=== PATIENT | male | born 1960 | race Caucasian/White ===

== ENCOUNTER 2020-03-26 11:25 | Outpatient (REF) | payer MEDICARE, MEDICAID, SELFPAY ==
[2020-03-26 14:33] LABS: Estimated Average Glucose 126 mg/dL
[2020-03-26 15:03] LABS: Alanine Aminotransferase 26 U/L (0-40); Alkaline Phosphatase 88 U/L (39-117); Anion Gap 13 (12-20); Aspartate Amino Transferase 23 U/L (5-37); Bilirubin Direct 0.2 mg/dL (0.0-0.5); Bilirubin Total 0.5 mg/dL (0.0-1.0); Blood Urea Nitrogen 14 mg/dL (9-16); Carbon Dioxide 27 mmol/L (22-29); Chloride 102 mmol/L (96-108); Estimated Glomerular Filt Rate 56; Potassium 4.3 mmol/l (3.3-5.1); Sodium 138 mmol/L (135-145); Total Protein 7.8 g/dL (6.5-8.0)
[2020-03-26 15:15] LABS: TSH reflex Free T4 1.67 mIU/mL (0.32-4.0)
[2020-03-26 15:39] LABS: Creatinine Urine 317.08 mg/dL
[2020-03-26 15:47] LABS: Glucose Random 55 mg/dL (60-115)
[2020-03-26 15:53] LABS: Microalbum/Creatinine Ratio Ur 193.3 ug/mg cr
[2020-03-27 07:57] LABS: LDL Cholesterol Direct 126 mg/dL (<100)
== END 2020-03-26 11:26 | disposition home or self-care (01) ==
LOC: HO.HMGCLDS 11:25
PROVIDERS: PCP Internal Medicine; Visit Provider Internal Medicine
DX: E13.9 Other specified diabetes mellitus without complications (principal); E78.9 Disorder of lipoprotein metabolism, unspecified; S06.9X9A Unspecified intracranial injury with loss of consciousness of unspecified duration, initial encounter; F32.9 Major depressive disorder, single episode, unspecified; F41.1 Generalized anxiety disorder; I10 Essential (primary) hypertension
CPT/HCPCS: 36415; 80048; 80076; 82043; 83036; 83721; 84443

== ENCOUNTER → 2022-08-07 15:26 | Outpatient (REF) | payer MEDICARE, MEDICAID, SELFPAY | LOC: HO.SL 15:26 | PROVIDERS: Visit Provider Registered Nurse | DX: Z13.89 Encounter for screening for other disorder (principal) ==

== ENCOUNTER 2022-09-23 12:53 | Outpatient (REF) | payer MEDICARE, MEDICAID, SELFPAY ==
[2022-09-23 16:40] LABS: Anion Gap 15 (12-20); Blood Urea Nitrogen 20 mg/dL (9-16); Calcium 10.1 mg/dL (8.4-10.2); Carbon Dioxide 22 mmol/L (22-29); Chloride 106 mmol/L (96-108); Cholesterol 121 mg/dL; Estimated Glomerular Filt Rate 48; Glucose Random 79 mg/dL (60-115); HDL Cholesterol 38 mg/dL; LDL Cholesterol Calculated 72 mg/dl; Potassium 3.7 mmol/L (3.3-5.1); Sodium 139 mmol/L (135-145); Triglycerides 56 mg/dL
== END 2022-09-23 12:54 | disposition home or self-care (01) ==
LOC: HO.HHCL 12:53
PROVIDERS: Visit Provider Registered Nurse
DX: I10 Essential (primary) hypertension (principal)
CPT/HCPCS: 36415; 80048; 80061

== ENCOUNTER 2024-02-03 13:16 | Outpatient (REF) | payer OTHER, SELFPAY ==
[2024-02-03 16:59] LABS: Alanine Aminotransferase 40 U/L (0-40); Albumin Level 3.9 g/dL (3.5-5.0); Alkaline Phosphatase 78 U/L (39-117); Anion Gap 12 (12-20); Aspartate Amino Transferase 29 U/L (5-37); Bilirubin Total 0.5 mg/dL (0.0-1.0); Blood Urea Nitrogen 14 mg/dL (9-16); Calcium 9.6 mg/dL (8.4-10.2); Carbon Dioxide 27 mmol/L (22-29); Chloride 109 mmol/L (96-108); Cholesterol 144 mg/dL (<200); Estimated Glomerular Filt Rate 52; Glucose Random 98 mg/dL (60-115); HDL Cholesterol 36 mg/dL (>40); LDL Cholesterol Calculated 82 mg/dL (<100); Potassium 3.5 mmol/L (3.3-5.1); Sodium 144 mmol/L (135-145); Total Protein 7.3 g/dL (6.5-8.0); Triglycerides 133 mg/dL (<150)
[2024-02-03 17:21] LABS: Creatinine Urine 734.87 mg/dL; Microalbum/Creatinine Ratio Ur 48.3 ug/mg cr (<30)
== END 2024-02-03 13:17 | disposition home or self-care (01) ==
LOC: HO.HHCL 13:16
PROVIDERS: Visit Provider Registered Nurse
DX: E11.22 Type 2 diabetes mellitus with diabetic chronic kidney disease (principal); N18.31 Chronic kidney disease, stage 3a
CPT/HCPCS: 36415; 80053; 80061; 82043; 82570

== ENCOUNTER → 2024-03-28 10:59 | Outpatient (REF) | payer OTHER, SELFPAY | LOC: HO.SL 10:59 | PROVIDERS: PCP Registered Nurse; Visit Provider Registered Nurse | DX: G47.33 Obstructive sleep apnea (adult) (pediatric) (principal); I12.9 Hypertensive chronic kidney disease with stage 1 through stage 4 chronic kidney disease, or unspecified chronic kidney disease; E11.22 Type 2 diabetes mellitus with diabetic chronic kidney disease; N18.31 Chronic kidney disease, stage 3a; E78.00 Pure hypercholesterolemia, unspecified; R42 Dizziness and giddiness; F03.B0 Unspecified dementia, moderate, without behavioral disturbance, psychotic disturbance, mood disturbance, and anxiety | CPT/HCPCS: 95806 ==

== ENCOUNTER 2024-05-06 11:10 | Outpatient (REF) | payer OTHER, SELFPAY ==
--- NOTE | ~2024-05-06 | XR_ITS ---
EXAMINATION: XR CHEST CLINICAL INFORMATION: Unintentional weight loss COMPARISON: None available. TECHNIQUE: 2 views of the chest were obtained. FINDINGS: No consolidation, pleural effusion or pneumothorax. No hyperinflation. Cardiomediastinal silhouette demonstrates a round apex and a prominent aortic arch. Multilevel thoracic and upper lumbar spondylosis. XR/XR chest 2V IMPRESSION: No acute airspace disease. Consider hypertensive cardiomyopathy in the correct clinical settings. Electronically signed by: Bharat Lopez MD 05/06/2024 11:56 AM ALENA
--- OUTSIDE RECORDS SUMMARY | 2024-05-06 12:18 | XMS_ITS | Encounter Summary ---
Author Organization [employer] Address [address] [facility] [address] [place] [address] Care Team Providers Care Outsole Cementer Machine Name Role Phone [place] [facility] Primary Care Provider [phone] Reason for Visit * Reason Onset Date Comments chart prep 05/05/2024 Encounter Details Date Type Department Care Team ([facility] Contact Info) Description 05/05/2024 Telephone [facility] MED[facility]INE [address] [place], [place] [phone] [place] [facility] [address] [place], [place] [phone] chart prep Social History Tobacco Use Types Packs/Day Years Used Date Smoking Tobacco: Never Passive Smoke Exposure: Never Smokeless Tobacco: Never Alcohol Use Standard Drinks/Week Comments Never 0 (1 standard drink = 0.6 oz pur e alcohol) Depression Answer Date Recorded Patient Health Questionnaire-9 Score 0 08/12/2022 Housing Stability Answer Date Recorded What is your housing situation today? I have bela calvillo 05/06/[address] you li ve. Do you have problems with any of the following? None of the above 05/06/2024 Food Insecurity Answer Date Recorded Within the past 12 months, y ou worried that your food would run out before you got money to buy more: Never True 05/06/2024 Within the past 12 months,th e food you bought just didn't last and you didn't have enough money to get more: Never True Transportation Answer Date Recorded In the past 12 months, has l ack of transportation kept you from medical appts, meetings, work or from getting things needed for daily living? No 05/06/2024 Utilities Answer Date Recorded In the past 12 months, has t he electric, gas, oil or water company threatened to shut off services in your home? No 05/06/2024 Depression Answer Date Recorded Patient Health Questionnaire-2 Score 0 05/06/2024 Internet Access Answer Date Recorded Internet Access Q1 Yes 05/06/2024 Internet Access Q2 Not on file 05/06/2024 Sex and Gender Information Value Date Recorded Sex Assigned at Male 04/17/2022 11:20 AM EST Legal Sex Male 11:14 AM EST Gender Identity Male 04/17/2022 11:20 AM EST Sexual Orientation Straight 04/17/2022 11 :20 AM EST documented as of this encounter Miscellaneous Notes * Telephone Encounter - Chantel Brito MA - 05/05/2024 1:28 PM EST Chart Prep Labs: done Images: not done ( No show to MRI ) Vaccines due: yes Referrals: complete Screenings: colonoscopy Overdue care gaps: A1C, Glucose, Sbirt, SDOH, PHQ-9, Oral Health documented in this encounter Plan of Treatment Not on file documented as of this encounter Goals Goal Patient Goal Type Associated Problems Recent Progress Patient-Stated? Author Check and record your blood pressure once per day Blood Pressure No Jose Elias Ramos PharmEvelin Take your medication every day Lifestyle No Jose Elias Ramos PharmD documented as of this encounter Visit Diagnoses Not on filedocumented in this encounter Additional Health Concerns Assessment Noted Time PHQ-9 Depression Total Score: 0 08/13/19 23 2:07 PM EDT documented as of this encounter Care Teams Outsole Cementer Machine Relationship Specialty Start Date End Date Gracy Cardona FNP [address] [place] [id number] PCP - General Family Medicine 06/04/22 documented as of this encounter
--- OUTSIDE RECORDS SUMMARY | 2024-05-06 12:18 | XMS_ITS | Encounter Summary ---
Author Organization [employer] Address [address] [place] [address] Care Team Providers Care Gear Repair Supervisor Name Role Phone Dulce Gracy LACQUERER Primary Care Provider [phone] Encounter Details Date Type Department Care Team (Latest Contact Info) Description 05/06/2024 Travel Social History Tobacco Use Types Packs/Day Years [...] AM EST documented as of this encounter Plan of Treatment Not on file documented as of this encounter Goals Goal Patient Goal Type Associated Problems Recent Progress Patient-Stated? Author Check and record your blood pressure once per day Blood Pressure No Jose Elias Ramos PharmD Take your medication every day Lifestyle No Jose Elisa Ramos PharmD documented as of this encounter Visit Diagnoses Not on filedocumented in this encounter Additional Health Concerns Assessment Noted Time PHQ-9 Depression Total Score: 0 08/13/19 23 2:07 PM EDT documented as of this encounter Care Teams Gear Repair Supervisor Relationship Specialty Start Date End Date Gracy Cardona FNP [address] [place] [id number] PCP - General Family Medicine 06/04/22 documented as of this encounter
--- OUTSIDE RECORDS SUMMARY | 2024-05-06 12:18 | XMS_ITS | Encounter Summary ---
Author Organization [employer] Address [address] [facility] [address] [place] [address] Care Team Providers Care Embroiderer Hand Name Role Phone [facility] Primary Care Provider [phone] Reason for Visit * Reason Onset Date Comments Durable Medical Equipment 04/22/2024 Encounter Details Date Type Department Care Team ([facility] st Contact Info) Description 04/22/2024 Telephone [facility] MEDICINE [address] [place], [place] [phone] [place] [facility] [address] [place], [place] [phone] Durable Medical Equipment Social History Tobacco Use Types Packs/Day Years Used Date Smoking Tobacco: Never Passive Smoke Exposure: Never Smokeless Tobacco: Never Alcohol Use Standard Drinks/Week Comments Never 0 (1 standard drink = 0.6 oz pur e alcohol) Depression Answer Date Recorded Patient Health Questionnaire-9 Score 0 08/12/2022 Housing Stability Answer Date Recorded What is your housing situation today? I have bela calvillo 01/13/[address] you li ve. Do you have problems with any of the following? None of the above 01/13/2023 Food Insecurity Answer Date Recorded Within the past 12 months, y ou worried that your food would run out before you got money to buy more: Never True 01/13/2023 Within the past 12 months,th e food you bought just didn't last and you didn't have enough money to get more: Never True Transportation Answer Date Recorded In the past 12 months, has l ack of transportation kept you from medical appts, meetings, work or from getting things needed for daily living? No 01/13/2023 Utilities Answer Date Recorded In the past 12 months, has t he electric, gas, oil or water company threatened to shut off services in your home? No 01/13/2023 Depression Answer Date Recorded Patient Health Questionnaire-2 Score 0 08/12/2022 Sex and Gender Information Value Date Recorded Sex Assigned at Male 04/17/2022 11:20 AM EST Legal Sex Male 11:14 AM EST Gender Identity Male 04/17/2022 11:20 AM EST Sexual Orientation Straight 04/17/2022 11 :20 AM EST documented as of this encounter Miscellaneous Notes * Telephone Encounter - Rangel Taylor - 04/22/2024 9:59 AM EST Tc from daughter requesting for a script for wipes for pt. If any questions you can contact daughter at [phone]. documented in this encounter Plan of Treatment [...] Time PHQ-9 Depression Total Score: 0 08/13/19 2:07 PM EDT documented as of this encounter Care Teams Embroiderer Hand Relationship Specialty Start Date End Date Gracy Cardona FNP [address] [place] [id number] PCP - General Family Medicine 06/04/22 documented as of this encounter
--- OUTSIDE RECORDS SUMMARY | 2024-05-06 12:18 | XMS_ITS | Encounter Summary ---
Author Organization [employer] Address [address] [facility] 7t [place] [address] Care Team Providers Care Communication Arts Lecturer Name Role Phone Gracy Cardona Primary Care Provider [phone] Encounter Details Date Type Department Care Team ([facility] st Contact Info) Description 11/06/2022 Orders Only [facility] MEDICINE [address] [place] [address] Chantel Brito [place] Social History Tobacco Use Types Packs/Day Years Used Date Smoking Tobacco: Never Passive Smoke Exposure: Never Smokeless Tobacco: Never Alcohol Use Standard Drinks/Week Comments Never 0 (1 standard drink = 0.6 oz pur e alcohol) Depression Answer Date Recorded Patient Health Questionnaire-9 Score 0 08/12/2022 Depression Answer Date Recorded Patient Health Questionnaire-2 [...] documented as of this encounter Care Teams Communication Arts Lecturer Relationship Specialty Start Date End Date Gracy Cardona FNP [address] [place] [address] PCP - General Family Medicine 06/04/22 documented as of this encounter
--- OUTSIDE RECORDS SUMMARY | 2024-05-06 12:18 | XMS_ITS | Encounter Summary ---
Author Organization [employer] Address [address] [facility] [address]t [place] [address] Care Team Providers Care Legal Coordinator Name Role Phone [facility] Primary Care Provider [phone] Reason for Visit * Reason Comments Pre-visit Planning (Unable to reach for PVP screening, LVM) Encounter Details Date Type Department Care Team ([facility] Contact Info) Description 04/21/2024 Patient Outreach [facility] MEDICINE [address] [place] [address] [facility], [facility] [address] [place] [address] Pre-visit Planning ((Unable to reach for PVP screening, LVM)) Social History Tobacco Use Types Packs/Day Years [...] AM EST documented as of this encounter Progress Notes * Mago Rosado - 04/21/2024 3:30 PM EST NICK Mercedes. Placed outbound call to patient to complete pre-visit planning. No answer at this time. Patient name and were not confirmed. CC left voicemail requesting return call. Direct contact information provided. documented in this encounter Plan of Treatment [...] documented as of this encounter Care Teams Legal Coordinator Relationship Specialty Start Date End Date Gracy Cardona FNP [address] [place] [phone] PCP - General Family Medicine 06/04/22 documented as of this encounter
--- OUTSIDE RECORDS SUMMARY | 2024-05-06 12:18 | XMS_ITS | Encounter Summary ---
Author Organization [employer] [facility] Address [address] [facility] [address] [place] [address] Care Team Providers Care Phlebotomist Supervisor/Instructor Name Role Phone Gracy Cardona [facility] Primary Care Provider [phone] Reason for Visit * Reason Comments Med Change Request Encounter Details Date Type Department Care Team ([facility] Contact Info) Description 07/01/2022 Refill [facility] [address] [place], [place] [phone] Gracy Cardona FNP [address] [place], [place] [phone] Anxiety Social History Tobacco Use Types Packs/Day Years Used Date Smoking Tobacco: Never Passive Smoke Exposure: Never Smokeless Tobacco: Never Alcohol Use Standard Drinks/Week Comments Never 0 (1 standard drink = 0.6 oz pur e alcohol) Sex and Gender Information Value Date Recorded Sex Assigned at Male 04/17/2022 11:20 AM EST Legal Sex Male 11:14 AM EST Gender Identity Male 04/17/2022 11:20 AM EST Sexual Orientation Straight 04/17/2022 11 :20 AM EST COVID-19 Exposure Response Date Recorded In the last 10 days, have yo u been in contact with someone who was confirmed or suspected to have Coronavirus/COVID-19? No / Unsure 07/01/2022 1:23 PM EDT documented as of this encounter Plan of Treatment Not on file documented as of this encounter Visit Diagnoses Diagnosis Anxiety Anxiety state, unspecified documented in this encounter Care Teams Phlebotomist Supervisor/Instructor Relationship Specialty Start Date End Date Gracy Cardona FNP [address] [place] [address] PCP - General Family Medicine 06/04/22 documented as of this encounter
--- OUTSIDE RECORDS SUMMARY | 2024-05-06 12:18 | XMS_ITS | Encounter Summary ---
Demographics Address [address] [facility] [address] [place] [address] Home Phone Preferred Language en Marital Status Unknown Worship Affiliation Unknown Race Unknown Ethnic Group Unknown Author Organization [facility] Address [address] [facility] [address] [place] [address] Phone Care Team Providers Care Tool Room Gear Machine Operator Name Role Phone Romel Bhandari MD Primary Care Provider [phone] Reason for Visit * Reason Comments Med Refill Encounter Details Date Type Department Care Team (Late st Contact Info) Description 03/14/2024 Refill [facility] [address] [place] [address] [place] [phone] Mikal Tsai MD [address] [facility] [address] [place] [address] Social History Tobacco Use Types Packs/Day Years Used Date Smoking Tobacco: Never Alcohol Use Standard Drinks/Week Comments No 0 (1 standard drink = 0.6 oz pur e alcohol) Sex and Gender Information Value Date Recorded Sex Assigned at Not on file Legal Sex Male 4:56 PM EST Gender Identity Not on file Sexual Orientation Not on file documented as of this encounter Plan of Treatment Not on file documented as of this encounter Visit Diagnoses Not on filedocumented in this encounter Care Teams Tool Room Gear Machine Operator Relationship Specialty Start Date End Date Romel Bhandari MD [address] [place] [phone] PCP - General Emergency Medicine 04/28/22 documented as of this encounter
--- OUTSIDE RECORDS SUMMARY | 2024-05-06 12:18 | XMS_ITS | Clinical Summary ---
Author Organization [employer] Address [address] [facility] [address] [place] [address] Care Team Providers Care Rail Car Repairman Name Role Phone Gracy Cardona [facility] Primary Care Provider Allergies No known active allergies Medications Farxiga 10 MG Take 1 tablet by mouth 1 (one) time each day. 3 Active Blood Glucose Monitoring Suppl (FreeStyle Lite) w/Device kit 1 kit 2 times daily. TEST BLOOD SUGAR TWICE DAILY 1 kit 3 Active FreeStyle lancets 1 each by Other route 2 times daily. USE DIRECTED TO TEST BLOOD SUGAR ONCE DAILY. 100 each 11 3 Active glucose blood (FREESTYLE LITE) test strip USE TO TEST BLOOD SUGAR TWICE A DAY 50 each 11 3 Active Memantine HCl ER 7 MG capsule sustained-release 24 hrIndications:Mode rate dementia without behavioral disturbance, psychotic disturbance, mood disturbance, or anxiety, unspecified dementia type (CMS/HCC) TAKE 1 CAPSULE BY MOUTH EVERY MORNING 90 capsule 4 Active metFORMIN XR (Glucophage-XR) 500 MG 24 hr tabletIndications: Type 2 diabetes mellitus without complication, without long-term current use of insulin (CMS/HCC) TAKE 1 TABLET BY MOUTH TWICE DAILY IN THE MORNING AND IN THE EVENING WITH FOOD 180 tablet 4 Active ammonium lactate (Lac-Hydrin) 12 % lotionIndications: Type 2 diabetes mellitus with stage 3a chronic kidney disease, without long-term current use of insulin (CMS/HCC) Apply topically if needed for dry skin. 396 g 3 4 02/03/20 25 Active glucose 4 g chewable tabletIndications: Type 2 diabetes mellitus with stage 3a chronic kidney disease, without long-term current use of insulin ([facility]) Chew 4 tablets (16 g) if needed for low blood sugar. 50 tablet 12 4 02/03/20 25 Active aspirin 81 MG chewable tabletIndications: Type 2 diabetes mellitus with stage 3a chronic kidney disease, without long-term current use of insulin (CMS/[facility]) Chew 1 tablet (81 mg) Once per day. 30 tablet 11 4 02/10/20 25 Active cyanocobalamin (Vitamin B-12) 1000 MCG tabletIndications: Cognitive decline TAKE 1 TABLET BY MOUTH EVERY MORNING 90 tablet 4 Active atorvastatin (Lipitor) 40 MG tabletIndications: Mixed hyperlipidemia TAKE 1 TABLET BY MOUTH EVERY MORNING 90 tablet 4 Active NIFEdipine XL (Procardia XL) 60 MG 24 hr tabletIndications: Primary hypertension TAKE 2 TABLETS BY MOUTH ONCE DAILY IN THE MORNING 60 tablet 2 5 Active olmesartan (BENIcar) 5 MG tabletIndications: Primary hypertension TAKE 1 TABLET BY MOUTH EVERY MORNING 90 tablet 1 5 Active metoprolol succinate XL (Toprol-XL) 100 MG 24 hr tabletIndications: Primary hypertension TAKE 1 TABLET BY MOUTH EVERY MORNING 90 tablet 1 5 Active chlorthalidone (Hygroton) 25 MG tabletIndications: Primary hypertension TAKE 1/2 TABLET BY MOUTH EVERY MORNING 45 tablet 1 5 Active Active Problems Problem Noted Date Diagnosed Date Dizziness 09/08/2022 Moderate dementia 07/23/2022 Overview (07/23/2022): ?? Memory loss worsening over the past several months. Gets confused about where he is. Gets lost walking home from [place] ?? On memantine 7mg ER initiated from previous provider ?? Brain MRI pending Assessment & Plan (09/25/2022 12:00 PM EDT): ?? Follow up pending brain MRI results-will consider neurology referral ?? Continue memantine 7mg ER Assessment & Plan (07/23/2022 6:57 PM EDT): ?? Daughter will call to reschedule brain MRI ?? Continue memantine 7mg. Unclear how rx was started however given patient considerable cognitive impairment I feel it is reasonable to continue at this time. ?? Will reach out to forms nurses to discuss TOOL DESIGN DRAFTER process and arranging for adult day care Mixed hyperlipidemia 07/23/2022 Overview (07/23/2022): ?? 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 Titre 1:1 04/2022. ?? Confirmed hx of treatment with [facility] Assessment & Plan (07/23/2022 6:50 PM EDT): ?? Likely prior infection. Will task RN's to confirm with [facility] CKD (chronic kidney disease) stage 3, GFR 30-59 ml/min 07/23/2022 Overview (07/23/2022): ?? Followed by [facility] ?? Baseline Cr 1.85; eGFR 40 HTN (hypertension) 04/17/2022 Overview (09/25/2022): ?? Metoprolol 50mg b.i.d ?? Nifedipine 120mg daily ?? Olmesartan 5mg daily ?? Chlorthalidone 12.5mg daily Maintenance: BMP: 05/2022 CKD Lipid Panel: pending ASCVD Risk: Calculate pending updated labs EK05/2022 NSR. bradycardia - Aerobic exercise to reduce BP. Initial goal of 30 min walk 3-5x/week. Increase as tolerated. - low-sodium diet (goal: <2g/day) and heart healthy diet such as DASH to reduce BP and prevent ASCVD. - Home BP monitoring 1-2 x day with goal of <140/90. - Seek immediate medical attention for chest pain, palpitations, SOB, syncope, or sudden changes in mental status. - Do not change or discontinue current prescriptions without first consulting health care provider Assessment & Plan (09/25/2022 11:58 AM EDT): ?? BP slightly elevated in office however WNL at recent RN BP check ?? Continue to monitor readings at home. Contact HC if consistently >140/90 ?? Will reach out to pharmacy to see if MTM appointment can be moved sooner Assessment & Plan (08/12/2022 2:34 PM EDT): ?? STOP triamterene-hydrochlorothiazide ?? START olmesartan 5mg daily ?? START chlorthalidone 12.5mg daily ?? Reviewed administration, risks, side effects ?? RN BP check 2 weeks with repeat labs Assessment & Plan (07/23/2022 6:47 PM EDT): Repeat BP: 140/89 Very unclear what patient has been taking for BP regimen and if taking any medications consistently. Clarified with patient and daughter current medication list. Will hold off on making any changes until pt is more consistent with current regimen and established with med box. Record home BP x 2 weeks daily RN BP check 2 weeks . Type 2 diabetes mellitus wit h diabetic chronic kidney disease 04/17/2022 Overview (02/10/2024): Farxiga 10mg Foot Exam: 01/2024- Risk 0 Eye Exam: UTD, outside facility Statin: Yes ASA: Yes RADHA/ARB: Yes Encouraged regular aerobic exercise for improved glycemic control Encouraged daily foot checks Encouraged lean protein snacks and to avoid foods high in sugar and simple carbohydrates Treatment Goals: A1c goal: <7% FBG goal: <130 2 hour post prandial goal: <180 Assessment & Plan (09/25/2022 11:58 AM EDT): Lab Results Component Value Date HGBA1C 6.4 (H) 04/22/2022 ?? Continue current regimen ?? Complete labs ?? Will plan to discuss aspirin for primary prevention at follow up Assessment & Plan (07/23/2022 6:38 PM EDT): Lab Results Component Value Date HGBA1C 6.4 (H) 04/22/2022 ?? Continue current regimen ?? Plan to discuss SGLT2i for renal protection at follow up Traumatic brain injury 04/17/2022 Overview (07/23/2022): ?? 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 Severe obstructive sleep apnea 04/17/2022 Overview (07/23/2022): ?? Referral to sleep medicine placed 05/2021 ?? Hx of severe obstructive sleep apnea. No longer has CPAP machine Assessment & Plan (07/23/2022 7:01 PM EDT): ?? Will order home sleep study to expedite care ?? Daughter provided with contact info for sleep medicine to inquire about initial appointment Resolved Problems Problem Noted Date Diagnosed Date Resolved Date Forgetfulness 04/17/2022 07/23/2022 Encounters Date Type Department Care Team Description 05/06/2024 10:00 AM EST Office Visit [facility] [address] [place] [phone] Gracy Cardona FNP Unintentional weight loss (Primary Dx); Type 2 diabetes mellitus with stage 3a chronic kidney disease, without long-term current use of insulin ([facility]) 05/06/2024 Travel 05/05/2024 Telephone [facility] [address] [place] [phone] Gracy Cardona FNP chart prep 04/22/2024 Telephone [facility] [address] [place] [phone] Gracy Cardona FNP Durable Medical Equipment 04/21/2024 Patient Outreach [address] [address] Gracy Cardona FNP Pre-visit Planning ((Unable to reach for PVP screening, LVM)) 03/29/2024 Refill [facility] [address] [place] [phone] Gracy Cardona FNP Primary hypertension 03/19/2024 Refill [facility] [address] [place] [phone] Gracy Cardona FNP Primary hypertension 03/14/2024 Refill [facility] [address] [place] [phone] Gracy Cardona FNP Cognitive decline; Mixed hyperlipidemia 02/15/2024 Telephone [facility] [address] [place] [phone] [place], [place], [facility] Results from Last 3 Months Immunizations Name Administration Dates Next Due Influenza injectable quadriv alent IIV4 with preservative 01/01/2018 Influenza injectable quadrivalent preservative f ree 12/21/2018 Influenza, High Dose Seasonal, Preservative Free 02/03/2024 Pfizer Covid-19 Vaccine 12+ 07/11/2020, Pfizer Covid-19 Vaccine 12+ rock-sucrose (Peralta C ap) 11/14/2021 Pneumococcal Conjugate PCV 20 08/12/2022 Tdap 08/12/2022 Social History Tobacco Use Types Packs/Day Years Used Date Smoking Tobacco: Never Passive Smoke Exposure: Never Smokeless Tobacco: Never Tobacco Cessation:Counseling Given: Not Answered Alcohol Use Standard Drinks/Week Comments Never 0 [...] Orientation Straight 04/17/2022 11 :20 AM EST Last Filed Vital Signs Vital Sign Reading Time Taken Comments Blood Pressure 138/88 05/06/2024 10:52 AM EST Pulse 54 05/06/2024 10:18 AM EST Temperature 36.1 ??C (97 ??F) 05/06/2024 10:18 AM EST Respiratory Rate 16 05/06/2024 10:18 AM EST Oxygen Saturation 99% 09/09/2022 4:23 PM EDT Inhaled Oxygen Concentration - - Weight 118 kg (259 lb 8 oz) 05/06/2024 10:18 AM EST Height 180.3 cm (5' 11 ) 05/06/2024 10:18 AM EST Body Mass Index 36.19 05/06/2024 10:18 AM EST Plan of Treatment Health Maintenance Due Date Last Done Comments CT Colonography 1960 Colonoscopy 1960 Colorectal Cancer Screening 1960 FIT DNA/Cologuard 1960 FIT 1960 FOBT 1960 Sigmoidoscopy 1960 Zoster Vaccines (1 of 2) 2008 RSV Patients and Patients Aged 60 years or older (1 - Risk 60-74 years 1-dose series) 2018 COVID-19 Vaccine (4 - 2023-2 5 season) 2023 11/14/2021, 07/11/2020, 06/19/2020 Diabetes: Hemoglobin A1C 11/03/2024 025, 02/03/2024, 04/22/2022 Diabetes: Foot Exam 02/02/2025 02/03/2024, 02/03/2024 Lipid Panel 02/02/2025 02/03/2024, 09/23/2022 Alcohol/Substance Use Screening 05/06/2025 05/06/2024 Depression Screening 05/06/2025 05/06/2024, 08/12/2022 SDOH Screening 05/06/2025 05/06/2024 Tobacco Screening 05/06/2025 05/06/2024 Eye Exam 07/14/2025 07/15/2023 DTaP/Tdap/Td Vaccines (2 - T d or Tdap) 08/12/2032 08/12/2022 Hepatitis C Screening Completed 04/22/2022 Pneumococcal Vaccine: 50+ Years Completed 08/12/2022 Influenza Vaccine Completed 02/03/2024, 12/21/2018, 01/01/2018 HIB Vaccines Aged Out No longer eligi ble based on patient's age to complete this topic HPV Vaccines Aged Out No longer eligi ble based on patient's age to complete this topic Hepatitis A Vaccines Aged Out No long er eligible based on patient's age to complete this topic Hepatitis B Vaccines Aged Out No long er eligible based on patient's age to complete this topic IPV Vaccines Aged Out No longer eligi ble based on patient's age to complete this topic Meningococcal Vaccine Aged Out No elizabeth donell eligible based on patient's age to complete this topic RSV under 20 months Aged Out No longe r eligible based on patient's age to complete this topic Rotavirus Vaccines Aged Out No longer eligible based on patient's age to complete this topic Goals Goal Patient Goal Type Associated Problems Recent Progress Patient-Stated? Author Check and record your blood pressure once per day Blood Pressure No Jose Elias Ramos PharmEvelin Take your medication every day Lifestyle No Jose Elias Ramos PharmD Procedures Procedure Name Priority Date/Time Associated Diagnosis Comments XR CHEST 2 VIEWS Routine 05/06/2024 11:3 7 AM EST Unintentional weight loss POCT GLUCOSE Routine 05/06/2024 10:24 AM EST Type 2 diabetes mellitus with stage 3a chronic kidney disease, without long-term current use of insulin (CMS/HCC) POCT GLYCATED HEMOGLOBIN, TOTAL Routine 05/06/2024 10:23 AM EST Type 2 diabetes mellitus with stage 3a chronic kidney disease, without long-term current use of insulin (CMS/HCC) LIPID PANEL, STANDARD Routine 02/03/2024 1:24 PM EST Type 2 diabetes mellitus with stage 3a chronic kidney disease, without long-term current use of insulin (CMS/HCC) HEPATITIS C VIRAL RNA, QUANTITATIVE, REAL-TIME PCR Routine 04/22/2022 9:55 AM EST Hypertension, unspecified type from Last 3 Months or Most Recently Relevant to Health Maintenance Results * XR Chest 2 Views (05/06/2024 11:37 AM EST) Anatomical Region Laterality Modality Chest Radiographic Nette ging 05/06/2024 11:3 7 AM EST Narrative 05/06/2024 11:59 AM EST ? [facility] ?[address] ?[place] [address] ?XRay Report ? Signed ? Patient: Valera,Trevor ?MR#: [id number] ?? [id number] ? : 1960 ?Acct:[id number] ? Age/Sex: 63 / M ?ADM Date: 05/06/24 ? Loc: HO.HHCL ? Attending Dr: Gracy Cardona ELEMENTARY ART TEACHER ? Ordering Physician: Gracy Cardona ELEMENTARY ART TEACHER ?? Date of Service: 05/06/24 ?? Procedure(s): XR chest 2V ?? Accession Number(s): [id number] ? cc: Gracy Cardona ELEMENTARY ART TEACHER ? EXAMINATION: ?? XR CHEST ? CLINICAL INFORMATION: ?? Unintentional weight loss ? COMPARISON: ?? None available. ? TECHNIQUE: ?? 2 views of the chest were obtained. ? FINDINGS: ?? No consolidation, pleural effusion or pneumothorax. ?? No hyperinflation. ?? Cardiomediastinal silhouette demonstrates a round apex and a prominent ?? aortic arch. ?? Multilevel thoracic and upper lumbar spondylosis. ? XR/XR chest 2V ?? IMPRESSION: ?? No acute airspace disease. ?? Consider hypertensive cardiomyopathy in the correct clinical settings. ? Electronically signed by: ??Bharat Lopez MD ??05/06/2024 11:56 AM ?? EST RP ? Dictated By: ?Bharat Vega MD ? Signed By: ?<Electronically signed by Bharat Mota MD in OV> ? 05/06/24 1156 ? DD/ 1137 ? TD/TT: 05/06/24 1149 ? Facilities Maintenance Technician: ? Procedure Note Jeronimo Pollard - 05/06/2024 [facility] [address] [facility] [place] [address] XRay Report Signed Patient: Selwyn Valera LMR#: [id number] : 9Acct:[id number] Age/Sex: 63 / MADM Date: 05/06/24 Loc: [facility] Attending Dr: Gracy Cardona ELEMENTARY ART TEACHER Ordering Physician: Gracy Cardona Date of Service: 05/06/24 Procedure(s): XR chest 2V Accession Number(s): [id number] cc: Gracy Cardona [facility] EXAMINATION: XR CHEST CLINICAL INFORMATION: Unintentional weight loss COMPARISON: None available. TECHNIQUE: 2 views of the chest were obtained. FINDINGS: No consolidation, pleural effusion or pneumothorax. No hyperinflation. Cardiomediastinal silhouette demonstrates a round apex and a prominent aortic arch. Multilevel thoracic and upper lumbar spondylosis. XR/XR chest 2V IMPRESSION: No acute airspace disease. Consider hypertensive cardiomyopathy in the correct clinical settings. Electronically signed by: Bharat Lopez MD 05/06/2024 11:56 AM EST Dictated By: Bharat Vega MD Signed By: <Electronically signed by Bharat Mota MDin OV> 05/06/24 1156 DD/ 1137 TD/TT: 05/06/24 1149 Facilities Maintenance Technician: [facility] IMG XR PROCEDURES Final Resul t * POCT Glucose (05/06/2024 10:24 AM EST) Glucose Blood, POC 142 60 - 200 mg/dL Comment:random QC Media Lot # [id number] Lot# Expiration Date [id number] Blood Capillary blood specimen / Unknown 05/06/2024 10:24 AM EST Result [facility] POINT OF CARE TEST ENTER/EDIT ORDERABLES Final Result * POCT HGB A1C (05/06/2024 10:23 AM EST) Hemoglobin A1C 5.6 4.0 - 6.0 % QC Media Lot # [id number] Lot# Expiration Date Blood 05/06/2024 10:2 3 AM EST [facility] POINT OF CARE TEST ENTER/EDIT ORDERABLES Final Result * (ABNORMAL) Lipid Panel, Standard (02/03/2024 1:24 PM EST) Triglycerides 133 <150 mg/dL [facility] Comment:Desirable Triglyceri de: less than 150 mg/dLBorderline High Triglyceride 150-199 mg/dLHigh Triglyceride: 200-499 mg/dLVery High Triglyceride: greater than or equal to 5OO mg/dL Cholesterol 144 <200 mg/dL [facility] Comment:Desirable Cholestero l: less than 200 mg/dLBorderline High Cholesterol: 200-239 mg/dLHigh Cholesterol: greater than 239 mg/dL LDL Cholesterol Calculated 82 <100 mg/dL [facility] Comment:Desirable LDL: less than 100 mg/dLNear Optimal/Above Optimal LDL: 110- 129 mg/dLBorderline High LDL: 130-159 mg/dLHigh LDL: 160-189 mg/dLVery High LDL: greater than or equal to 190 mg/dL HDL Cholesterol 36(L) >40 mg/dL [facility] Comment:Desirable HDL: great er than 40 mg/dL Note: This HDL assay may give artificially low results in patients with liver disease. Blood Venous blood specimen / Unknown 02/03/2024 1:24 PM EST 02/03/2024 4:29 PM EST [facility] LAB BLOOD ORDERABLES Final Re sult [facility] [address] [place] [phone] * Hepatitis C Viral RNA, Quantitative, Real-Time PC (04/22/2022 9:55 AM EST) HCV RNA, QN Real Time PCR <15 NOT DETECTED NOT DETECTED IU/mL [facility] QN Real Time PCR <1.18 NOT DETECTED NOT DETECTED Log IU/mL [facility] Comment: This test was performed using Real-Time Polymerase Chain Reaction. Reportable Range: 15 IU/mL to 100,000,000 IU/mL (1.18 Log IU/mL to 8.00 Log IU/mL). ?? The analytical performance characteristics of this assay have been determined by [facility]. The modifications have not been cleared or approved by the FDA. This assay has been validated pursuant to the CLIA regulations and is used for clinical purposes. ?? For more information on this test, go to: http://education.PulsePoint/faq/AHZ30f2 (This link is being provided for informational/ educational purposes only.) 04/22/2022 9:55 AM EST 04/22/2022 9:55 AM EST Narrative [facility] - 04/23/2022 1:58 PM EST FASTING:YES FASTING: YES Romel Bhandari MD LAB BLOOD ORDERABLES Final Resul t [facility] [address], [place] [address] [facility] [address] [facility], ([address]) [place] [address] from Last 3 Months or Most Recently Relevant to Health Maintenance Insurance * Guarantor: Selwyn Valera Account Type Relation to Patient Date of Phone Billing Address Personal/Family Self [address] [place] [address] [facility] [place] [id number] Care Teams Rail Car Repairman Relationship Specialty Start Date End Date [place] Gracy [facility] [address] [place] [address] [place] [address] PCP - General Family Medicine 06/04/22
--- OUTSIDE RECORDS SUMMARY | 2024-05-06 12:18 | XMS_ITS | Clinical Summary ---
Demographics Address [address] [facility] [address] [place] [address] Home Phone Preferred Language en Marital Status Unknown Jain Affiliation Unknown Race Unknown Ethnic Group Unknown Author Organization [facility] Address [address] [facility] [address] [place] [address] Phone Care Team Providers Care Used Car Manager Name Role Phone Romel Bhandari MD Primary Care Provider [phone] Allergies No known active allergies Medications triamterene-hy droCHLOROthiaz kasey (MAXZIDE-25) 37.5-25 MG per tablet TAKE 1 TABLET BY MOUTH IN THE MORNING. SWITCHING FROM HYDROCHLOROTHIAZIDE 25MG DAILY. 05/23/19 23 Active NIFEdipine XL (PROCARDIA XL) 60 MG 24 hr tablet TAKE 2 TABLETS BY MOUTH EVERY MORNING. DO NOT BREAK, CRUSH, DISSOLVE OR CHEW. 05/29/19 23 Active metoprolol succinate XL (TOPROL XL) 50 MG 24 hr tablet Take 50 mg by mouth in the morning and 50 mg in the evening. Active metFORMIN XR (GLUCOPHAGE-XR ) 500 MG 24 hr tablet TAKE 1 TABLET BY MOUTH TWICE DAILY DO NOT BREAK, CRUSH, DISSOLVE OR CHEW 07/16/19 23 Active cloNIDine (CATAPRES) 0.3 MG tablet Take 1 tablet by mouth in the morning and 1 tablet in the evening. 07/03/19 20 Active atorvastatin (LIPITOR) 40 MG tablet Take 40 mg by mouth every morning 07/16/19 23 Active cyanocobalamin (VITAMIN B-12) 100 MCG tablet Take 50 mcg by mouth 1 (one) time each day Activ e memantine (NAMENDA) 10 MG tablet Take 10 mg by mouth in the morning and 10 mg in the evening. Active pioglitazone (ACTOS) 15 MG tablet Take 15 mg by mouth 1 (one) time each day Activ e Dapagliflozin Propanediol (Farxiga) 10 MG tablet Take 10 mg by mouth in the morning. 90 tablet 2 04/28/19 24 Active Active Problems Problem Noted Date Diagnosed Date Nephropathy due to secondary diabetes mellitus 0 08/07/2022 Microalbuminuria 08/07/2022 Stage 3b chronic kidney disease 08/07/2022 Type 2 diabetes mellitus wit h diabetic chronic kidney disease 08/07/2022 Proteinuria 08/07/2022 Chronic kidney disease stage 3 07/23/2022 Overview (08/07/2022): ?? Followed by [facility] ?? Baseline Cr 1.85; eGFR 40 Dementia, moderate 07/23/2022 Overview (08/07/2022): ?? Memory loss worsening over the past several months. Gets confused about where he is. Gets lost walking home from [employer] ?? On memantine 7mg ER initiated from previous provider ?? Brain MRI pending Last Assessment & Plan: ?? Daughter will call to reschedule brain MRI ?? Continue memantine 7mg. Unclear how rx was started however given patient considerable cognitive impairment I feel it is reasonable to continue at this time. ?? Will reach out to forms nurses to discuss MANAGER CLINICAL INFORMATICS process and arranging for adult day care Mixed hyperlipidemia 07/23/2022 Overview (08/07/2022): ?? Atorvastatin 80mg daily Syphilis test finding 07/23/2022 Overview (08/07/2022): ?? Titre 1:1 04/2022. Pt reports thinking he was treated a long time ago Last Assessment & Plan: ?? Likely prior infection. Will task RN's to confirm with DPH Type 2 diabetes mellitus without complication Traumatic brain injury 04/17/2022 Obstructive sleep apnea syndrome 04/17/2022 Forgetful 04/17/2022 Hypertensive disorder 04/17/2022 Encounters Date Type Department Care Team Description 03/14/2024 Refill [facility] [address] [place] [address] Mikal Tsai MD from Last 3 Months Immunizations Name Administration Dates Next Due Influenza, Quadrivalent, Preservative Free 12/21 Influenza, Quadrivalent, With Preservative 01/01 Pfizer SARS-COV-2 11/14/2021,07/11/2020,06/20/19 21 Family History Relation Status Comments Father Mother Social History Tobacco Use Types Packs/Day Years Used Date Smoking Tobacco: Never Alcohol Use Standard Drinks/Week Comments No 0 (1 standard drink = 0.6 oz pur e alcohol) Sex and Gender Information Value Date Recorded Sex Assigned at Not on file Legal Sex Male 4:56 PM EST Gender Identity Not on file Sexual Orientation Not on file Last Filed Vital Signs Vital Sign Reading Time Taken Comments Blood Pressure 146/85 08/07/2022 2:51 PM EDT Pulse 80 08/07/2022 2:51 PM EDT Temperature - - Respiratory Rate - - Oxygen Saturation 96% 08/07/2022 2:51 PM EDT Inhaled Oxygen Concentration - - Weight - - Height - - Body Mass Index - - Plan of Treatment Health Maintenance Due Date Last Done Comments Colorectal Cancer Screening: Annual FOBT 06/25/2007 Colorectal Cancer Screening: Colonoscopy 06/25/2007 Colorectal Cancer Screening: Sigmoidoscopy 06/25/2007 Diabetes: Ophthalmology Exam 04/15/2020 Diabetes: Pedal Pulse Checked 04/15/2020 Diabetes: Sensory Foot Exam 04/15/2020 Diabetes: Visual Foot Exam 04/15/2020 Diabetes: Hemoglobin A1C 05/05/2024 024, 04/22/2022, 08/25/2019 Pneumococcal Vaccine: 65+ Years Completed 08/12/2022 Pneumococcal Vaccine: Pediatrics (0 to 5 Years) and At-Risk Patients (6 to 64 Years) Completed 08/12/2022 Influenza Vaccine Completed 02/03/2024, 12/21/2018, 01/01/2018 Hepatitis B Vaccine Aged Out No longe r eligible based on patient's age to complete this topic Procedures Procedure Name Priority Date/Time Associated Diagnosis Comments BLOOD PANEL (HC) Routine 08/25/2019 12:0 0 AM EDT from Last 3 Months or Most Recently Relevant to Health Maintenance Results * (ABNORMAL) Blood Panel (08/25/2019 12:00 AM EDT) Creatinine 1.30 0.70 - 1.30 mg/dl PVNMA Calcium 9.0 8.4 - 10.2 mg/dl PVNMA Sodium 138 137 - 145 mmol/L PVNMA Carbon Dioxide (CO2) 27 22 - 30 mmol/L PVNMA LDL,Direct 73 <130 mg/dl PVNMA Hgb 14.9 13.0 - 16.5 g/dl PVNMA eGFR Non- 56(L) >60 ml/min [facility] Hematocrit 44.0 38 - 50 % PVNMA Platelets 205 140 - 440 k/uL PVNMA Hemoglobin A1C 6.2(H) <5 % [facility]NMA Potassium 3.5 3.5 - 5.1 mmol/L PVNMA BUN 14 9 - 20 mg/dl PVNMA 08/25/2019 us Rtama Conversion LAB [id number] LICITED RESULTS Final Result PVNMA from Last 3 Months or Most Recently Relevant to Health Maintenance Insurance MEDICARE MEDICAID [place] [facility] Care Teams Used Car Manager Relationship Specialty Start Date End Date Romel Bhandari MD [address] [place] [phone] PCP - General Emergency Medicine 04/28/22
--- OUTSIDE RECORDS SUMMARY | 2024-05-06 12:18 | XMS_ITS | Encounter Summary ---
Author Organization [employer] Address [address] [facility] 7t [place] [address] Care Team Providers Care Music Teacher Name Role Phone [place] [facility] ER Primary Care Provider [phone] Reason for Visit * Reason Comments Diabetes Encounter Details Date Type Department Care Team (Latest Contact Info) Description 05/06/2024 10:00 AM EST Office Visit [facility]INE [address] [place], [place] [phone] [place] [facility] [address] [place], [place] [phone] Unintentional weight loss (Primary Dx); Type 2 diabetes mellitus with stage 3a chronic kidney disease, without long-term current use of insulin ([facility]) Social History Tobacco Use Types Packs/Day Years [...] AM EST documented as of this encounter Last Filed Vital Signs Vital Sign Reading Time Taken Comments Blood Pressure 138/88 05/06/2024 10:52 AM EST Pulse 54 05/06/2024 10:18 AM EST Temperature 36.1 ??C (97 ??F) 05/06/2024 10:18 AM EST Respiratory Rate 16 05/06/2024 10:18 AM EST Oxygen Saturation - - Inhaled Oxygen Concentration - - Weight 118 kg (259 lb 8 oz) 05/06/2024 10:18 AM EST Height 180.3 cm (5' 11 ) 05/06/2024 10:18 AM EST Body Mass Index 36.19 05/06/2024 10:18 AM EST documented in this encounter Plan of Treatment Scheduled Orders Name Type Priority Associated Diagnoses Orde r Schedule CBC auto differential Lab Routine Unintentional weight loss Expected: 05/06/2024 (Approximate), Expires: 05/06/2025 Comprehensive Metabolic Panel Lab Routine Unintentional weight loss Expected: 05/06/2024 (Approximate), Expires: 05/06/2025 TSH W/Reflex to FT4 Lab Routine Unintentional weight loss Expected: 05/06/2024 (Approximate), Expires: 05/06/2025 Sed Rate by Modified [place] Lab Routine Unintentional weight loss Expected: 05/06/2024, Expires: 05/06/2025 C-reactive Protein Lab Routine Unintentional weight loss Expected: 05/06/2024 (Approximate), Expires: 05/06/2025 HIV-1/2 Antigen and Antibodies, Fourth Generation, with Reflexes Lab Routine Unintentional weight loss Expected: 05/06/2024 (Approximate), Expires: 05/06/2025 documented as of this encounter Goals Goal Patient Goal Type Associated Problems Recent Progress Patient-Stated? Author Check and record your blood pressure once per day Blood Pressure No Jose Elias Ramos PharmD Take your medication every day Lifestyle No Jose Elias Ramos PharmD documented as of this encounter Procedures Procedure Name Priority Date/Time Associated Diagnosis Comments XR CHEST 2 VIEWS Routine 05/06/2024 11:3 7 AM EST Unintentional weight loss POCT GLUCOSE Routine 05/06/2024 10:24 AM EST Type 2 diabetes mellitus with stage 3a chronic kidney disease, without long-term current use of insulin ([facility]) POCT GLYCATED HEMOGLOBIN, TOTAL Routine 05/06/2024 10:23 AM EST Type 2 diabetes mellitus with stage 3a chronic kidney disease, without long-term current use of insulin ([facility]) documented in this encounter Results * XR Chest 2 Views (05/06/2024 11:37 AM EST) Anatomical Region Laterality Modality Chest Radiographic Nette ging 05/06/2024 11:3 7 AM EST Narrative 05/06/2024 11:59 AM EST ? [facility] ?[address] ?[place] [address] ?XRay Report ? Signed ? Patient: Valera,Trevor ?MR#: [id number] ?? [id number] ? : 1960 ?Acct:[id number] ? Age/Sex: 63 / M ?ADM Date: //25 ? Loc: HO.HHCL ? Attending Dr: Gracy Dulce MIDDLEWARE SYSTEMS ARCHITECT ? Ordering Physician: [place],Gracy MIDDLEWARE SYSTEMS ARCHITECT ?? Date of Service: 05/06/24 ?? Procedure(s): XR chest 2V ?? Accession Number(s): [id number] ? cc: Gracy Cardona MIDDLEWARE SYSTEMS ARCHITECT ? EXAMINATION: ?? XR CHEST ? CLINICAL [...] DD/ 1137 ? TD/TT: 05/06/24 1149 ? Tactical Response Group Officer: ? Procedure Note Latrice, Image - 05/06/2024 [place] [address] XRay Report Signed Patient: Selwyn Valera LMR#: [id number] : 9Acct:[id number] Age/Sex: 63 / MADM Date: 05/06/24 [facility]: Gracy GAMEZ Ordering Physician: Gracy Cardona Date of Service: 05/06/24 Procedure(s): XR chest 2V Accession Number(s): [id number] cc: Gracy Cardona EXAMINATION: XR CHEST CLINICAL INFORMATION: Unintentional weight [...] Bharat Lopez MD 05/06/2024 11:56 AM EST RP Dictated By: Bharat Vega MD Signed By: <Electronically signed by Bharat Mota MDin OV> 05/06/24 1156 DD/ 1137 TD/TT: 05/06/24 1149 Tactical Response Group Officer: Result [facility] IMG XR PROCEDURES Final Resul t * POCT Glucose (05/06/2024 10:24 AM EST) Glucose Blood, POC 142 60 - 200 mg/dL Comment:random QC Media Lot # [id number] Lot# Expiration Date Blood Capillary blood specimen / Unknown 05/06/2024 10:24 AM EST Result [facility] POINT OF CARE TEST ENTER/EDIT ORDERABLES Final Result * POCT HGB A1C (05/06/2024 10:23 AM EST) Hemoglobin A1C 5.6 4.0 - 6.0 % QC Media Lot # [id number] Lot# Expiration Date Blood 05/06/2024 10:2 3 AM EST Result [facility] POINT OF CARE TEST ENTER/EDIT ORDERABLES Final Result documented in this encounter Visit Diagnoses Diagnosis Unintentional weight loss- Primary Loss of weight Type 2 diabetes mellitus with stage 3a chronic kidney disease, without long-term current use of insulin ([facility]) documented in this encounter Additional Health Concerns Assessment Noted Time PHQ-9 Depression Total Score: 0 08/13/19 23 2:07 PM EDT documented as of this encounter Care Teams Music Teacher Relationship Specialty Start Date End Date [place] [facility] [address] [place] [address] PCP - General Family Medicine 06/04/22 documented as of this encounter
[2024-05-06 13:20] LABS: MANUAL DIFF FLAG NO
[2024-05-06 13:33] LABS: Basophils Percent Auto 0.4 % (0-2); Eosinophils Absolute Auto 0.2 X10*3/uL (0.0-0.4); Eosinophils Percent Auto 2.3 % (0-4); Hematocrit 44.2 % (42.0-52.0); Imm Gran Abs Auto 0.02 X10*3/uL (0.00-0.03); Imm Gran Pct Auto 0.2 % (0.0-0.4); Lymphocytes Absolute Auto 3.6 X10*3/uL (1.2-4.9); Lymphocytes Percent Auto 39.3 % (20-40); Mean Corpuscular HGB Conc 33.9 g/dl (31.0-36.0); Mean Corpuscular Hemoglobin 32.2 pg (27.0-33.0); Mean Corpuscular Volume 94.8 fL (80.0-98.0); Mean Platelet Volume 11.4 fL (9.4-12.4); Monocytes Absolute Auto 0.7 X10*3/uL (0.1-1.2); Monocytes Percent Auto 7.5 % (2-11); Neutrophils Absolute Auto 4.6 x10*3/uL (2.0-8.3); Neutrophils Percent Auto 50.3 % (45-73); Platelet Count 197 X10*3/uL (160-400); Red Blood Count 4.66 X10*6/uL (4.60-5.80); Red Cell Distribution Width 13.4 % (11.0-16.0); White Blood Count 9.2 X10*3/uL (4.8-10.8)
[2024-05-06 13:55] LABS: Alanine Aminotransferase 33 U/L (0-40); Alkaline Phosphatase 94 U/L (39-117); Anion Gap 10 (12-20); Aspartate Amino Transferase 30 U/L (5-37); Bilirubin Total 0.5 mg/dL (0.0-1.0); Blood Urea Nitrogen 14 mg/dL (9-16); C Reactive Protein < 0.10 mg/dL (< or = 0.50); Calcium 9.6 mg/dL (8.4-10.2); Carbon Dioxide 28 mmol/L (22-29); Chloride 107 mmol/L (96-108); Estimated Glomerular Filt Rate 59; Glucose Random 85 mg/dL (60-115); Potassium 3.6 mmol/L (3.3-5.1); Sodium 141 mmol/L (135-145); Total Protein 7.9 g/dL (6.5-8.0)
[2024-05-06 14:11] LABS: HIV AB/AG Nonreactive (Nonreactive); HIV Num 1 0.06 S/CO (0.00-0.99)
[2024-05-06 14:16] LABS: Erythrocyte Sedimentation Rate 8 MM/HR (0-15)
[2024-05-06 14:17] LABS: TSH reflex Free T4 1.28 uIU/mL (0.32-4.0)
== END 2024-05-06 11:11 | disposition home or self-care (01) ==
LOC: HO.HHCL 11:10
PROVIDERS: Visit Provider Registered Nurse
DX: R63.4 Abnormal weight loss (principal)
CPT/HCPCS: 36415; 71046; 80053; 84443; 85025; 85652; 86140; 87389

== ENCOUNTER → 2024-05-06 11:37 | Outpatient (BNV) | payer OTHER, SELFPAY | PROVIDERS: Visit Provider Radiology Diagnostic Radiology | DX: I11.9 Hypertensive heart disease without heart failure (principal) | CPT/HCPCS: 71046 ==

== ENCOUNTER 2024-05-14 06:45 | Emergency (ER) | payer OTHER, SELFPAY ==
--- NOTE | ~2024-05-14 | XR_ITS ---
CLINICAL HISTORY: constipation 1 view abdomen Comparison: None Findings: No pneumoperitoneum or pneumatosis. No abnormal calcifications. No acute fractures. There is a relatively small stool burden. IMPRESSION: The bowel gas pattern is within normal limits. Relatively small stool burden. This document has been electronically signed by: Alfredo Campos MD on 05/14/2024 10:37:28
--- NOTE | ~2024-05-14 | CT_ITS ---
CLINICAL HISTORY: lower abdominal constipation, FB insertion at home Exam: CT Abdomen and Pelvis With IV Contrast Comparison: Ultrasound 08/05/2018. Findings: The liver density is homogeneous. No biliary abnormalities. The spleen is normal in size. No pancreatic ductal dilatation. No hydronephrosis. There are two 8 and 10 mm benign left kidney exophytic cysts. Normal bowel caliber. There is a small 2 cm wide-mouth umbilical hernia containing anterior wall of small bowel without bowel obstruction. The bowel pattern is nonobstructed. The appendix is normal. No free fluid/free air. No vascular abnormalities. No adenopathy. Bladder outline is smooth. There is mild symmetric enlargement of the prostate gland. Mesorectal space, urogenital diaphragm are unremarkable. Perianal tissues unremarkable without signs of abscess or fistula by CT. No suspicious skeletal lesions. Impression: Unremarkable CT of the abdomen and pelvis. Specifically no signs of radiopaque foreign body. This document has been electronically signed by: Mikal Villalpando MD on 05/14/2024 14:13:50
[2024-05-14 06:48] VITALS: BP 149/87; PULSE 71; RESP 17; TEMP 36.2; O2SAT 98; BMI 35.7
--- OUTSIDE RECORDS SUMMARY | 2024-05-14 07:16 | XMS_ITS | Encounter Summary ---
Author Organization [employer] Address [address] [facility] 7t [place] [address] Care Team Providers Care Outpatient Interviewing Clerk Name Role Phone [facility] Primary Care Provider [phone] Reason for Visit * Reason Onset Date Comments chart prep 05/05/2024 Encounter Details Date Type Department Care Team ([facility] Contact Info) Description 05/05/2024 Telephone [facility] MEDICINE [address] [place], [place] [phone] [place] [facility] [address] [place], [place] [phone] chart prep Social History Tobacco Use Types [...] documented in this encounter Plan of Treatment Upcoming Encounters Date Type Department Care Team (Late st Contact Info) Description 05/23/2024 11:30 AM EDT Clinical Support [facility]INE [address] [place] [phone] 08/03/2024 10:00 AM EDT Office Visit [facility] [address] [place] [phone] [place] Gracy [address] [address] documented as of this encounter Goals Goal [...] documented as of this encounter Care Teams Outpatient Interviewing Clerk Relationship Specialty Start Date End Date [place] VERA Dubose [address] [place] [address] PCP - General Family Medicine 06/04/22 documented as of this encounter
--- OUTSIDE RECORDS SUMMARY | 2024-05-14 07:16 | XMS_ITS | Encounter Summary ---
Author Organization [employer] Address [address] [facility] [address] 7t [place] [address] Care Team Providers Care Disability Insurance Hearing Officer Name Role Phone Dulce Gracy COMPLIANCE ENGINEER Primary Care Provider [phone] Encounter Details Date Type Department Care Team [...] as of this encounter Plan of Treatment Upcoming Encounters Date Type Department Care Team (Late st Contact Info) Description 05/23/2024 11:30 AM EDT Clinical Support [facility] MEDICINE [address] [place] [phone] 08/03/2024 10:00 AM EDT Office Visit [address] [address] Gracy Cardona FNP [address] [place] [address] documented as of this encounter Goals Goal [...] documented as of this encounter Care Teams Disability Insurance Hearing Officer Relationship Specialty Start Date End Date Gracy Cardona FNP [address] [place] [address] PCP - General Family Medicine 06/04/22 documented as of this encounter
--- OUTSIDE RECORDS SUMMARY | 2024-05-14 07:16 | XMS_ITS | Clinical Summary ---
Demographics Address [address] [facility] [address] [place] [address] Home Phone Preferred Language en Marital Status Unknown Anabaptism Affiliation Unknown Race Unknown Ethnic Group Unknown Author Organization [facility] Address [address] [facility] [address] [place] [address] Phone Care Team Providers Care Etcher Enameling Name Role Phone Romel Bhandari MD Primary Care Provider [phone] Allergies No known active allergies Medications triamterene-hy [...] 3 07/23/2022 Overview (08/07/2022): ?? Followed by [place] [facility] ?? Baseline Cr 1.85; eGFR [...] reach out to forms nurses to discuss COOK RELIEF process and arranging for adult day care [...] 03/14/2024 Refill [facility] [address] [place], [place] [address] Mikal Tsai MD from Last 3 Months [...] mg/dl PVNMA 08/25/2019 us Rtama Conversion LAB [id number] LICITED RESULTS Final Result PVNMA from Last 3 Months or Most Recently Relevant to Health Maintenance Insurance MEDICARE [place]ID [place] [facility] Care Teams Etcher Enameling Relationship Specialty Start Date End Date Romel Bhandair MD [address] [place] [phone] PCP - General Emergency Medicine 04/28/22
--- OUTSIDE RECORDS SUMMARY | 2024-05-14 07:16 | XMS_ITS | Encounter Summary ---
Author Organization [email or web address] Address [address] [facility] 7t [place] [address] Care Team Providers Care Radial Drill Press Set Up Operator Name Role Phone Gracy Cardona Primary Care Provider [phone] Reason for Referral * Imaging (Routine) - Authorized Specialty Diagnoses / Procedures Referred By Contgautam t Referred To Contact Cardiology Diagnoses Cardiomyopathy, unspecified type (CMS/HCC) Procedures Transthoracic Echo (TTE) Complete Gracy Cardona FNP [address] [place] [address] Phone: tel: fax: [address] Phone: tel: fax: Referral ID Status Reason Start Date Expiration Date Visits Requested Visits Authorized [id number] Authorized Perform Procedure 05/06/2024 05/06/2025 1 1 Encounter Details Date Type Department Care Team (Late st Contact Info) Description 05/06/2024 Orders Only [facility] 230 [place], [place] [phone] Gracy Cardona FNP [address] [place], [place] [phone] Cardiomyopathy, unspecified type (CMS/HCC) (Primary Dx) Social History Tobacco Use Types Packs/Day Years [...] Description 05/23/2024 11:30 AM EDT Clinical Support [facility] [address] [place] [phone] 08/03/2024 10:00 AM EDT Office Visit [facility] MED[facility] [address] [place] [phone] [place] [facility] [address] [place] [address] Scheduled Orders Name Type Priority Associated Diagnoses Orde r Schedule Transthoracic Echo (TTE) Complete Echocardiography Routine Cardiomyopathy, unspecified type (CMS/HCC) Expected: 05/06/2024 (Approximate), Expires: 05/06/2026 documented as of this encounter Goals Goal Patient Goal Type Associated Problems Recent Progress Patient-Stated? Author Check and record your blood pressure once per day Blood Pressure No Jose Elias Ramos PharmD Take your medication every day Lifestyle No Jose Elias Ramos PharmD documented as of this encounter Visit Diagnoses Diagnosis Cardiomyopathy, unspecified type (CMS/HCC)- Primary documented in this encounter Additional Health Concerns Assessment Noted Time PHQ-9 Depression Total Score: 0 08/13/19 23 2:07 PM EDT documented as of this encounter Care Teams Radial Drill Press Set Up Operator Relationship Specialty Start Date End Date Gracy Cardona FNP [address] [place] [phone] PCP - General Family Medicine 06/04/22 documented as of this encounter
--- OUTSIDE RECORDS SUMMARY | 2024-05-14 07:16 | XMS_ITS | Encounter Summary ---
Author Organization [employer] Address [address] [facility] 7t [place] [address] Care Team Providers Care Aluminum Siding Mechanic Name Role Phone [place] [facility] Primary Care Provider [phone] Reason for Visit * Reason Onset Date Comments Results 05/09/2024 Encounter Details Date Type Department Care Team ([facility] Contact Info) Description 05/09/[address] [facility] MEDICINE [address] [place], [place] [phone] [place] Gracy [facility] 230 [place], [place] [phone] Results Social History Tobacco Use Types Packs/Day Years [...] encounter Miscellaneous Notes * Telephone Encounter - Jessica Ewing - 05/10/2024 11:50 AM EST Tc from daughter returning call to message prior. Tape Sewing Machine Operator notified about message placed , daughter responded she will keep PCP updated on BP and will continue medication . * Telephone Encounter - Margo Kauffman RN - 05/10/2024 9:17 AM EST TC x3 placed to patient [phone] in regards to below message however no answer, RN left VM requesting CB to red team nurses. RN will send letter to address on file. Patient to f/u PRN. ----- Message from [facility] sent at 05/06/2024 4:41 PM EST ----- Please advise patient's daughter that blood work was normal however his chest x- ray shows evidence of structural changes to the heart which can sometimes happen with a history of uncontrolled hypertension, I am ordering an echocardiogram for further evaluation. Please continue to take blood pressure medications daily and record BP twice daily for 2 weeks as we talked about today. Thank you! * Telephone Encounter - Margo Kauffman RN - 05/09/2024 4:24 PM EST TC x2 placed to patient [phone] in regards to below message however no answer, RN left requesting CB to red team nurses. RN will re-attempt in AM. ----- Message from [facility] sent at 05/06/2024 4:41 PM EST ----- Please advise patient's daughter that blood work was normal however his chest x- ray shows evidence of structural changes to the heart which can sometimes happen with a history of uncontrolled hypertension, I am ordering an echocardiogram for further evaluation. Please continue to take blood pressure medications daily and record BP twice daily for 2 weeks as we talked about today. Thank you! * Telephone Encounter - Margo Kauffman RN - 05/09/2024 9:32 AM EST TC placed to patient [phone] in regards to below message however no answer, RN left requesting CB to red team nurses. RN will re-attempt in PM. ----- Message from [facility] sent at 05/06/2024 4:41 PM EST ----- Please advise patient's daughter that blood work was normal however his chest x- ray shows evidence of structural changes to the heart which can sometimes happen with a history of uncontrolled hypertension, I am ordering an echocardiogram for further evaluation. Please continue to take blood pressure medications daily and record BP twice daily for 2 weeks as we talked about today. Thank you! documented in this encounter Plan of Treatment Upcoming Encounters Date Type Department Care Team (Late st Contact Info) Description 05/23/2024 11:30 AM EDT Clinical Support [facility] MED[facility]INE [address] [place] [address] 08/03/2024 10:00 AM EDT Office Visit [facility] [address] [place] [address] Gracy Cardona FNP [address] [place] [address] documented as of this encounter Goals Goal [...] documented as of this encounter Care Teams Aluminum Siding Mechanic Relationship Specialty Start Date End Date Gracy Cardona FNP [address] [place] [address] PCP - General Family Medicine 06/04/22 documented as of this encounter
--- OUTSIDE RECORDS SUMMARY | 2024-05-14 07:16 | XMS_ITS | Encounter Summary ---
Author Organization [employer] Address [address] [facility] 7[address] [place] [address] Care Team Providers Care Tick Inspector Name Role Phone [facility]ons [facility] Primary Care Provider [phone] Reason for Visit * Reason Comments Diabetes Encounter Details Date Type Department Care Team (Latest Contact Info) Description 05/06/2024 10:00 AM EST Office Visit [facility] MEDICINE [address], [place] [phone] Emmons [facility] [address], [place] [phone] Unintentional weight loss (Primary Dx); Type 2 diabetes mellitus with stage 3a chronic kidney disease, without long-term current use of insulin ([facility]); Primary hypertension; Dietary counseling; Exercise counseling Social History Tobacco Use Types Packs/Day Years [...] 10:18 AM EST documented in this encounter Progress Notes * [facility], [facility] - 05/06/2024 10:00 AM EST SUBJECTIVE: Selwyn Valera is a 63 y.o. year old male with dementia, T2DM, CKD, HTN, HLD and JODIE who presents for chronic disease mngmt. Interim Updates: - X2YT-oadxauehs discontinued at last visit due to hypoglycemia. Daughter reports improvement in dizziness. Denies any low blood sugar readings. - Weight loss--Additional 13 pound weight loss since last visit in January. Daughter reports diet changes-patient is no longer going to [employer] and has decreased his soda intake. She also reportsrecent GI illness. Patient with no prior colon cancer screening. Has Cologuard kit at home but has not completed. Patient denies diarrhea, abdominal pain, fever, chills. 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 No family history on file. Review of Systems Constitutional: Positive for unexpected weight change. Negative for activity change, diaphoresis, fatigue and fever. Eyes: Negative for visual disturbance. Respiratory: Negative for apnea, cough, chest tightness and shortness of breath. Cardiovascular: Negative for chest pain, palpitations and leg swelling. Gastrointestinal: Negative for abdominal pain and nausea. Neurological: Negative for dizziness, syncope, light-headedness and headaches. OBJECTIVE: Vitals: 05/06/24 1018 05/06/24 1052 BP: (!) 170/84 138/88 BP Location: Left arm Patient Position: Sitting BP Cuff Size: Large adult Pulse: 54 Resp: 16 Temp: 97 ??F (36.1 ??C) TempSrc: Oral Weight: 259 lb 8 oz (118 kg) Height: 5' 11 (1.803 m) Physical Exam Constitutional: Appearance: Normal appearance. HENT: Head: Normocephalic. Right Ear: External ear normal. Left Ear: External ear normal. Nose: Nose normal. Eyes: Conjunctiva/sclera: Conjunctivae normal. Cardiovascular: Rate and Rhythm: Normal rate and regular rhythm. Heart sounds: Normal heart sounds. Pulmonary: Effort: Pulmonary effort is normal. Breath sounds: Normal breath sounds. Musculoskeletal: Right lower leg: No edema. Left lower leg: No edema. Lymphadenopathy: Comments: No lymphadenopathy Skin: General: Skin is warm and dry. Capillary Refill: Capillary refill takes less than 2 seconds. Neurological: General: No focal deficit present. Mental Status: He is alert and oriented to person, place, and time. Psychiatric: Mood and Affect: Mood normal. Behavior: Behavior normal. ASSESSMENT/PLAN Weight loss -Unclear if unintentional or secondary to diet changes/ recent illness. - Will obtain labs and chest x-ray - Emphasized importance of completing Cologuard kit at home-daughter verbalizes understanding and reports will complete collection today. Patient does not want a colonoscopy T2DM Lab Results Component Value Date HGBA1C 5.6 05/06/2024 HGBA1C 5.2 02/03/2024 HGBA1C 6.4 (H) 04/22/2022 Lab Results Component Value Date MICROALBUR 355.0 02/03/2024 CREATININE 1.23 05/06/2024 - Continue Farxiga monotherapy -Was referred to nephrology for mild CKD 01/2024. Has not established care yet. - Foot exam : 01/2024 risk 0 - UTD on eye exam - STATIN: Yes - ASA: Yes - RADHA/ARB: Yes HTN -Blood pressure with significant elevation on first arrival to office. Patient asymptomatic. Reports taking blood pressure medications shortly before arriving. BP improved on recheck - Continue current regimen Metoprolol 50mg b.i.d Nifedipine 120mg daily Olmesartan 5mg daily Chlorthalidone 12.5mg daily Dementia -missed brain MRI and prior referral to neurology. On memantine 7mg XR initiated by outside provider. Family unable to say if medication makes a noticeable difference. Confusion in familiar places. Mood remains upbeat. No difficulty sleeping. Extensive hx of TBI s/t boxing career. Prior lab eval B12/TSH/CBC/iron studies/CMP/HIV all WNL. Hx of syphilis s/p tx 2003. Titre 1:1 04/2022 -Daughter to call and reschedule brain MRI. New neurology referral placed 01/2024. Diagnosis Plan 1. Unintentional weight loss XR Chest 2 Views XR Chest 2 Views CBC auto differential Comprehensive Metabolic Panel TSH W/Reflex to FT4 Sed Rate by Modified Westergren C-reactive Protein HIV-1/2 Antigen and Antibodies, Fourth Generation, with Reflexes CBC auto differential Comprehensive Metabolic Panel TSH W/Reflex to FT4 Sed Rate by Modified Westergren C-reactive Protein HIV-1/2 Antigen and Antibodies, Fourth Generation, with Reflexes 2. Type 2 diabetes mellitus with stage 3a chronic kidney disease, without long- term current use of insulin ([facility]) POCT Glucose POCT HGB A1C 3. Primary hypertension 4. Dietary counseling 5. Exercise counseling Follow Up: 3 months, sooner PRN Current Outpatient Medications on File Prior to Visit Medication Sig Dispense Refill ammonium lactate (Lac-Hydrin) 12 % lotion Apply topically if needed for dry skin. 396 g 3 aspirin 81 MG chewable tablet Chew 1 tablet (81 mg) Once per day. 30 tablet 11 atorvastatin (Lipitor) 40 MG tablet TAKE 1 TABLET BY MOUTH EVERY MORNING 90 tablet 0 Blood Glucose Monitoring Suppl (FreeStyle Lite) w/Device kit 1 kit 2 times daily. TEST BLOOD SUGAR TWICE DAILY 1 kit 0 chlorthalidone (Hygroton) 25 MG tablet TAKE 1/2 TABLET BY MOUTH EVERY MORNING 45 tablet 1 cyanocobalamin (Vitamin B-12) 1000 MCG tablet TAKE 1 TABLET BY MOUTH EVERY MORNING 90 tablet 0 Farxiga 10 MG Take 1 tablet by mouth 1 (one) time each day. FreeStyle lancets 1 each by Other route 2 times daily. USE DIRECTED TO TEST BLOOD SUGAR ONCE DAILY. 100 each 11 glucose 4 g chewable tablet Chew 4 tablets (16 g) if needed for low blood sugar. 50 tablet 12 glucose blood (FREESTYLE LITE) test strip USE TO TEST BLOOD SUGAR TWICE A DAY 50 each 11 Memantine HCl ER 7 MG capsule sustained-release 24 hr TAKE 1 CAPSULE BY MOUTH EVERY MORNING 90 capsule 0 metFORMIN XR (Glucophage-XR) 500 MG 24 hr tablet TAKE 1 TABLET BY MOUTH TWICE DAILY IN THE MORNING AND IN THE EVENING WITH FOOD 180 tablet 0 metoprolol succinate XL (Toprol-XL) 100 MG 24 hr tablet TAKE 1 TABLET BY MOUTH EVERY MORNING 90 tablet 1 NIFEdipine XL (Procardia XL) 60 MG 24 hr tablet TAKE 2 TABLETS BY MOUTH ONCE DAILY IN THE MORNING 60 tablet 2 olmesartan (BENIcar) 5 MG tablet TAKE 1 TABLET BY MOUTH EVERY MORNING 90 tablet 1 No current facility-administered medications on file prior to visit. Citizen Of [place] Translation: Provided by [facility] staff member documented in this encounter Plan of Treatment Upcoming Encounters Date Type Department Care Team (Late st Contact Info) Description 05/23/2024 11:30 AM EDT Clinical Support [facility] MED[facility] [address] [place] [address] 08/03/2024 10:00 AM EDT Office Visit [facility] [address] [place] [address] Gracy Cardona, CRIMINAL INTELLIGENCE ANALYST [address] [place] [address] documented as of this encounter Goals Goal [...] 11:3 7 AM EST Unintentional weight loss TSH W/REFLEX TO FT4 Routine 05/06/2024 1 1:12 AM EST Unintentional weight loss CBC WITH AUTO DIFFERENTIAL Routine 05/06/2024 11:12 AM EST Unintentional weight loss HIV 1/2 ANTIGEN/ANTIBODY, FOURTH GENERATION W/RFL Routine 05/06/2024 11:12 AM EST Unintentional weight loss SED RATE BY MODIFIED WESTERGREN Routine 05/06/2024 11:12 AM EST Unintentional weight loss C-REACTIVE PROTEIN Routine 05/06/2024 11 :12 AM EST Unintentional weight loss COMPREHENSIVE METABOLIC PANEL Routine 05/06/2024 11:12 AM EST Unintentional weight loss POCT GLUCOSE Routine 05/06/2024 10:24 AM EST Type 2 diabetes mellitus with stage 3a chronic kidney disease, without long-term current use of insulin ([facility]) POCT GLYCATED HEMOGLOBIN, TOTAL Routine 05/06/2024 10:23 AM EST Type 2 diabetes mellitus with stage 3a chronic kidney disease, without long-term current use of insulin (CMS/HCC) documented in this encounter Results * XR Chest 2 Views (05/06/2024 11:37 AM EST) Anatomical Region Laterality Modality Chest Radiographic Nette ging 05/06/2024 11:3 7 AM EST Narrative 05/06/2024 11:59 AM EST ? [facility] ?[address] ?[place] [address] ?XRay Report ? Signed ? Patient: Selwyn Valera L ?MR#: [id number] ?? [id number] ? : 1960 ?Acct:[id number] ? Age/Sex: 63 / M ?ADM Date: 05/06/24 ? Loc: HO.HHCL ? Attending Dr: Gracy Cardona CRIMINAL INTELLIGENCE ANALYST ? Ordering Physician: Gracy Cardona ?? Date of Service: 05/06/24 ?? Procedure(s): XR chest 2V ?? Accession Number(s): [id number] ? cc: Gracy Cardona ? EXAMINATION: ?? XR CHEST ? CLINICAL [...] DD/ 1137 ? TD/TT: 05/06/24 1149 ? Outsole Paraffiner: ? Procedure Note Latrice, Image - 05/06/[address] [address] XRay Report Signed Patient: Selwyn Valera LMR#: [id number] : 9Acct:[id number] Age/Sex: 63 / MADM Date: 05/06/24 Loc: [facility] Attending Dr: Gracy Emmons VERA Ordering Physician: Gracy Cardona Date of Service: 05/06/24 Procedure(s): XR chest 2V Accession Number(s): [id number] [facility] EX[facility]: XR CHEST CLINICAL INFORMATION: Unintentional weight [...] 05/06/24 1156 DD/ 1137 TD/TT: 05/06/24 1149 Outsole Paraffiner: [facility] IMG XR PROCEDURES Final Resul t * HIV-1/2 Antigen and Antibodies, Fourth Generation, with Reflexes (05/06/2024 11:12 AM EST) HIV AB/AG Nonreactive Nonreactive [facility] Comment:HIV-1 p24 Ag and/or HIV-1/HIV-2 Ab not detected.A test result that is nonreactive does not exclude thepossibility of exposure to or infection with HIV-1 and/orHIV-2. Nonreactive results in this assay for individualswith prior exposure to HIV-1 and/or HIV-2 may be due toantigen and antibody levels that are below the limit ofdetection of this assay.The Microtask HIV Ag/Ab Combo assay result andsupplemental assay results should be interpreted inconjunction with the patient's clinical presentation,history and other laboratory results. If the results areinconsistent with clinical evidence, additional testing issuggested to confirm the result. Blood Venous blood specimen / Unknown 05/06/2024 11:12 AM EST 05/06/2024 1:06 PM EST [facility] LAB BLOOD ORDERABLES Final Re sult Performing Organization Address [facility] Co de Phone Number [facility] [address] [place] [phone] * C-reactive Protein (05/06/2024 11:12 AM EST) C Reactive Protein <0.10 < or = 0.50 mg/dL [facility] Blood Venous blood specimen / Unknown 05/06/2024 11:12 AM EST 05/06/2024 1:06 PM EST [facility] LAB BLOOD ORDERABLES Final Re sult Performing Organization Address [facility] Phone Number [facility] [address] [place] [phone] * Sed Rate by Modified Gavinergren (05/06/2024 11:12 AM EST) Erythrocyte Sedimentation Rate 8 0 - 15 MM/HR [facility] Comment:Patients with polycy themia and many hemoglobin abnormalitiesmay have depressed sed rates whereas patients with anemiamay have elevated sed rates. Blood Venous blood specimen / Unknown 05/06/2024 11:12 AM EST 05/06/2024 1:06 PM EST [facility] LAB BLOOD ORDERABLES Final Re sult Performing Organization Address [facility] Co de Phone Number [facility] [address] [place] [phone] * TSH W/Reflex to FT4 (05/06/2024 11:12 AM EST) TSH reflex Free T4 1.28 0.32 - 4.0 uIU/mL [facility] Blood Venous blood specimen / Unknown 05/06/2024 11:12 AM EST 05/06/2024 1:06 PM EST [facility] LAB BLOOD ORDERABLES Final Re sult [facility] [address] [place] [phone] * (ABNORMAL) Comprehensive Metabolic Panel (05/06/2024 11:12 AM EST) Sodium 141 135 - 145 mmol/L [facility] Potassium 3.6 3.3 - 5.1 mmol/L [facility] Chloride 107 96 - 108 mmol/L [facility] Carbon Dioxide 28 22 - 29 mmol/L [facility] Anion Gap 10(L) 12 - 20 [facility] Urea Nitrogen (BUN) 14 9 - 16 mg/dL [facility] Creatinine, Serum 1.23 0.5 - 1.4 mg/dL [facility] Estimated Glomerular Filt Rate 59 [facility] Comment:Chronic Kidney Disea se: Estimated GFR < 60 mL/min/1.16j1Gsvzby Kidney Disease: Estimated GFR < 15 mL/min/1.73m2 Glucose 85 60 - 115 mg/dL [facility] Calcium 9.6 8.4 - 10.2 mg/dL [facility] Bilirubin, Total 0.5 0.0 - 1.0 mg/dL [facility] Aspartate Amino Transferase 30 5 - 37 U/L [facility] Alanine Aminotransferase 33 0 - 40 U/L [facility] Total Protein 7.9 6.5 - 8.0 g/dL [facility] Albumin Level 4.0 3.5 - 5.0 g/dL [facility] Alkaline Phosphatase 94 39 - 117 U/L [facility] Blood Venous blood specimen / Unknown 05/06/2024 11:12 AM EST 05/06/2024 1:06 PM EST [facility] CRIMINAL INTELLIGENCE ANALYST LAB BLOOD ORDERABLES Final Re sult [facility] [address] [place] [address] [phone] * CBC auto differential (05/06/2024 11:12 AM EST) White Blood Count 9.2 4.8 - 10.8 X10*3/uL [facility] Red Blood Count 4.66 4.60 - 5.80 X10*6/uL [facility] Hemoglobin 15.0 14.0 - 18.0 g/dl [facility] Hematocrit 44.2 42.0 - 52.0 % [facility] Mean Corpuscular Volume 94.8 80.0 - 98.0 fL [facility] Mean Corpuscular Hemoglobin 32.2 27.0 - 33.0 pg [facility] Mean Corpuscular HGB Conc 33.9 31.0 - 36.0 g/dl [facility] Red Cell Distribution Width 13.4 11.0 - 16.0 % [facility] Platelet Count 197 160 - 400 X10*3/uL [facility] Mean Platelet Volume 11.4 9.4 - 12.4 fL [facility] Neutrophils Percent Auto 50.3 45 - 73 % [facility] Imm Gran Pct Auto 0.2 0.0 - 0.4 % [facility] Lymphocytes Percent Auto 39.3 20 - 40 % [facility] Monocytes Percent Auto 7.5 2 - 11 % [facility] Eosinophils Percent Auto 2.3 0 - 4 % [facility] Basophils Percent Auto 0.4 0 - 2 % [facility] NRBC Pct Auto 0.0 0.0 - 0.2 /100WBC [facility] Neutrophils Absolute Auto 4.6 2.0 - 8.3 x10*3/uL [facility] Imm Gran Abs Auto 0.02 0.00 - 0.03 X10*3/uL [facility] Lymphocytes Absolute Auto 3.6 1.2 - 4.9 X10*3/uL [facility] Monocytes Absolute Auto 0.7 0.1 - 1.2 X10*3/uL [facility] Eosinophils Absolute Auto 0.2 0.0 - 0.4 X10*3/uL [facility] Basophils Absolute Auto 0.0 0.0 - 0.2 X10*3/uL [facility] NRBC Abs Auto 0.000 0.0 - 0.012 X10*3/uL [facility] Blood Venous blood specimen / Unknown 05/06/2024 11:12 AM EST 05/06/2024 1:06 PM EST [facility] LAB BLOOD ORDERABLES Final Re sult [facility] [address] [place] [phone] * POCT Glucose (05/06/2024 10:24 AM EST) Glucose Blood, POC 142 60 - 200 mg/dL Comment:random QC Media Lot # [id number] Lot# Expiration Date Blood Capillary blood specimen / Unknown 05/06/2024 10:24 AM EST Result [facility] POINT OF CARE TEST ENTER/EDIT ORDERABLES Final Result * POCT HGB A1C (05/06/2024 10:23 AM EST) Hemoglobin A1C 5.6 4.0 - 6.0 % QC Media Lot # [id number] Lot# Expiration Date , Blood 05/06/2024 10:2 3 AM EST [facility] POINT OF CARE TEST ENTER/EDIT ORDERABLES Final Result documented in this encounter Visit Diagnoses Diagnosis Unintentional weight loss- Primary Loss of weight Type 2 diabetes mellitus with stage 3a chronic kidney disease, without long-term current use of insulin ([facility]) Primary hypertension Unspecified essential hypertension Dietary counseling Dietary surveillance and counseling Exercise counseling documented in this encounter Additional Health Concerns Assessment Noted Time PHQ-9 Depression Total Score: 0 08/13/19 23 2:07 PM EDT documented as of this encounter Care Teams Tick Inspector Relationship Specialty Start Date End Date [facility] [address] [place] [phone] PCP - General Family Medicine 06/04/22 documented as of this encounter
--- OUTSIDE RECORDS SUMMARY | 2024-05-14 07:16 | XMS_ITS | Encounter Summary ---
Author Organization [employer] Address [address] [facility] [address] [place] [address] Care Team Providers Care [employer] Name Role Phone [facility] Primary Care Provider [phone] Reason for Visit * Reason Comments Med Refill Encounter Details Date Type Department Care Team ([facility] Contact Info) Description 05/10/2024 Refill [facility] [address] [place], [place] [phone] [place] [facility] [place] [address] [place] [address] Type 2 diabetes mellitus without complication, without long-term current use of insulin ([facility]); Moderate dementia without behavioral disturbance, psychotic disturbance, mood disturbance, or anxiety, unspecified dementia type ([facility]/HCC) Social History Tobacco Use Types Packs/Day Years [...] Description 05/23/2024 11:30 AM EDT Clinical Support [facility] [address] [place] [phone] 08/03/2024 10:00 AM EDT Office Visit [facility] [address] [place] [phone] Gracy Cardona FNP [address] [place] [phone] documented as of this encounter Goals Goal Patient Goal Type Associated Problems Recent Progress Patient-Stated? Author Check and record your blood pressure once per day Blood Pressure No Jose Elias Ramos PharmD Take your medication every day Lifestyle No Jose Elias Ramos PharmD documented as of this encounter Visit Diagnoses Diagnosis Type 2 diabetes mellitus without complication, without long-term current use of insulin (CMS/HCC) Moderate dementia without behavioral disturbance, psychotic disturbance, mood disturbance, or anxiety, unspecified dementia type (CMS/HCC) documented in this encounter Additional Health Concerns Assessment Noted Time PHQ-9 Depression Total Score: 0 08/13/19 23 2:07 PM EDT documented as of this encounter Care Teams [employer] Relationship Specialty Start Date End Date Gracy Cardona FNP [address] [place] [phone] PCP - General Family Medicine 06/04/22 documented as of this encounter
--- OUTSIDE RECORDS SUMMARY | 2024-05-14 07:16 | XMS_ITS | Encounter Summary ---
Author Organization Written [facility] Address [address] [facility] [address] [place] [address] Care Team Providers Care Interventional Neuroradiologist Name Role Phone Gracy Cardona [facility] Primary Care Provider [phone] Encounter Details Date Type Department Care Team (Late st Contact Info) Description 11/06/2022 Orders Only [facility] MED[facility]INE [address] [place] [phone] Chantel Brito [place] Social History Tobacco Use [...] Description 05/23/2024 11:30 AM EDT Clinical Support [facility] [address] [place] [address] [phone] 08/03/2024 10:00 AM EDT Office Visit [facility] [address] [place] [phone] Gracy Cardona FNP [address] [place] [phone] documented as of this encounter Goals Goal [...] documented as of this encounter Care Teams Interventional Neuroradiologist Relationship Specialty Start Date End Date Gracy Cardona FNP [address] [place] [phone] PCP - General Family Medicine 06/04/22 documented as of this encounter
--- OUTSIDE RECORDS SUMMARY | 2024-05-14 07:16 | XMS_ITS | Encounter Summary ---
Demographics Address [address] [facility] [address] [place] [address] Home Phone Preferred Language en Marital Status Unknown Holiness Affiliation Unknown Race Unknown Ethnic Group Unknown Author Organization [facility] Address [address] [facility] [address] [place] [address] Phone Care Team Providers Care Kapok Machine Operator Name Role Phone Romel Bhandari MD Primary Care Provider [phone] Reason for Visit * Reason Comments Med Refill Encounter Details Date Type Department Care Team (Late st Contact Info) Description 03/14/2024 Refill [facility] [address] [place] [place] [phone] Mikal Tsai MD [address] [facility] [address] [place] [address] Social History Tobacco Use Types [...] on filedocumented in this encounter Care Teams Kapok Machine Operator Relationship Specialty Start Date End Date Romel Bhandari MD [address] [place] [phone] PCP - General Emergency Medicine 04/28/22 documented as of this encounter
--- OUTSIDE RECORDS SUMMARY | 2024-05-14 07:16 | XMS_ITS | Encounter Summary ---
Author Organization [employer] Address [address] [place] [address] Care Team Providers Care Accounting Supervisor Name Role Phone [place] [facility] Primary Care Provider [phone] Reason for Visit * Reason Onset Date Comments Results 05/12/2024 Encounter Details Date Type Department Care Team ([facility] Contact Info) Description 05/12/[address] [facility] [address] [place], [place] [phone] [place] Gracy [facility] [address] [place], [place] [phone] Results Social History Tobacco Use Types Packs/Day [...] encounter Miscellaneous Notes * Telephone Encounter - Carly Cowan RN - 05/12/2024 2:57 PM EST Images from the original note were not included. TC placed to pt daughter to inform of below PCP message. Pt daughter on HIPAA form. Pt daughter verbalized understanding of PCP message and denies questions or concerns at this time. VERA [facility] Red Team Nurses Please let patient's daughter know that repeat sleep study showed only mild sleep apnea that did not require treatment with a CPAP machine. This is probably due to his weight loss. Recommend sleepingwith slight incline and continuing to monitor symptoms. Thank you! documented in this encounter Plan of Treatment Upcoming Encounters Date Type Department Care Team (Late st Contact Info) Description 05/23/2024 11:30 AM EDT Clinical Support [address] [address] 08/03/2024 10:00 AM EDT Office Visit [address] [address] Gracy Cardona FNP [address] [place] [address] documented as of this encounter Goals Goal Patient Goal Type Associated Problems Recent Progress Patient-Stated? Author Check and record your blood pressure once per day Blood Pressure No Jose Elias Ramos PharmEvelin Take your medication every day Lifestyle No Richard, Jose Elias, PharmD documented as of this encounter Visit Diagnoses Not on filedocumented in this encounter Additional Health Concerns Assessment Noted Time PHQ-9 Depression Total Score: 0 08/13/19 23 2:07 PM EDT documented as of this encounter Care Teams Accounting Supervisor Relationship Specialty Start Date End Date Gracy Cardona FNP [address] [place] [phone] PCP - General Family Medicine 06/04/22 documented as of this encounter
--- OUTSIDE RECORDS SUMMARY | 2024-05-14 07:16 | XMS_ITS | Encounter Summary ---
Author Organization [employer] [facility] Address [address] [facility] [address] [place] [address] Care Team Providers Care Clinic Office Assistant Name Role Phone [place] [facility] Primary Care Provider [phone] Reason for Visit * Reason Comments Med Change Request Encounter Details Date Type Department Care Team ([facility] Contact Info) Description 07/01/2022 Refill [facility] [address] [place], [place] [phone] [facility] [address] [place] [address] Anxiety Social History Tobacco Use Types Packs/Day [...] Upcoming Encounters Date Type Department Care Team ([facility] Contact Info) Description 05/23/2024 11:30 AM EDT Clinical Support [facility] [address] [place] [phone] 08/03/2024 10:00 AM EDT Office Visit [facility] [address] [place] [address] Gracy Cardona FNP [address] [place] [address] documented as of this encounter Visit Diagnoses Diagnosis Anxiety Anxiety state, unspecified documented in this encounter Care Teams Clinic Office Assistant Relationship Specialty Start Date End Date Gracy Cardona FNP [address] [place] [address] PCP - General Family Medicine 06/04/22 documented as of this encounter
--- OUTSIDE RECORDS SUMMARY | 2024-05-14 07:16 | XMS_ITS | Clinical Summary ---
Author Organization [employer] Address [address] 7t [place] [address] Care Team Providers Care Regulatory Consultant Name Role Phone Gracy Cardona [facility] Primary Care Provider [phone] Allergies No known active allergies Medications Farxiga 10 MG Take 1 tablet by mouth 1 (one) time each day. 08/08/19 23 Active Blood Glucose Monitoring Suppl (FreeStyle Lite) w/Device kit 1 kit 2 times daily. TEST BLOOD SUGAR TWICE DAILY 1 kit 02/17/20 23 Active FreeStyle lancets 1 each by Other route 2 times daily. USE DIRECTED TO TEST BLOOD SUGAR ONCE DAILY. 100 each 11 02/17/20 23 Active glucose blood (FREESTYLE LITE) test strip USE TO TEST BLOOD SUGAR TWICE A DAY 50 each 02/19/20 23 Active ammonium lactate (Lac-Hydrin) 12 % lotionIndications :Type 2 diabetes mellitus with stage 3a chronic kidney disease, without long-term current use of insulin (CMS/[facility]) Apply topically if needed for dry skin. 396 g 3 02/03/20 24 025 Active glucose 4 g chewable tabletIndications :Type 2 diabetes mellitus with stage 3a chronic kidney disease, without long-term current use of insulin (CMS/HCC) Chew 4 tablets (16 g) if needed for low blood sugar. 50 tablet 12 02/03/20 24 025 Active aspirin 81 MG chewable tabletIndications :Type 2 diabetes mellitus with stage 3a chronic kidney disease, without long-term current use of insulin (CMS/HCC) Chew 1 tablet (81 mg) Once per day. 30 tablet 11 02/10/20 24 025 Active cyanocobalamin (Vitamin B-12) 1000 MCG tabletIndications :Cognitive decline TAKE 1 TABLET BY MOUTH EVERY MORNING 90 tablet 03/14/20 24 Active atorvastatin (Lipitor) 40 MG tabletIndications :Mixed hyperlipidemia TAKE 1 TABLET BY MOUTH EVERY MORNING 90 tablet 03/14/20 24 Active NIFEdipine XL (Procardia XL) 60 MG 24 hr tabletIndications :Primary hypertension TAKE 2 TABLETS BY MOUTH ONCE DAILY IN THE MORNING 60 tablet 2 03/21/19 25 Active olmesartan (BENIcar) 5 MG tabletIndications :Primary hypertension TAKE 1 TABLET BY MOUTH EVERY MORNING 90 tablet 1 03/30/19 25 Active metoprolol succinate XL (Toprol-XL) 100 MG 24 hr tabletIndications :Primary hypertension TAKE 1 TABLET BY MOUTH EVERY MORNING 90 tablet 1 03/30/19 25 Active chlorthalidone (Hygroton) 25 MG tabletIndications :Primary hypertension TAKE 1/2 TABLET BY MOUTH EVERY MORNING 45 tablet 1 03/30/19 25 Active metFORMIN XR (Glucophage-XR) 500 MG 24 hr tabletIndications :Type 2 diabetes mellitus without complication, without long-term current use of insulin (CMS/HCC) TAKE 1 TABLET BY MOUTH TWICE DAILY IN THE MORNING AND IN THE EVENING WITH FOOD 180 tablet 05/12/19 25 Active Memantine HCl ER 7 MG capsule sustained-release 24 hrIndications:Mod erate dementia without behavioral disturbance, psychotic disturbance, mood disturbance, or anxiety, unspecified dementia type (CMS/HCC) TAKE 1 CAPSULE BY MOUTH EVERY MORNING 90 capsule 05/12/19 25 Active Memantine HCl ER 7 MG capsule sustained-release 24 hrIndications:Mod erate dementia without behavioral disturbance, psychotic disturbance, mood disturbance, or anxiety, unspecified dementia type (CMS/HCC) TAKE 1 CAPSULE BY MOUTH EVERY MORNING 90 capsule 12/23/19 24 025 Discontinued metFORMIN XR (Glucophage-XR) 500 MG 24 hr tabletIndications :Type 2 diabetes mellitus without complication, without long-term current use of insulin (CMS/HCC) TAKE 1 TABLET BY MOUTH TWICE DAILY IN THE MORNING AND IN THE EVENING WITH FOOD 180 tablet 12/23/19 24 025 Discontinued Active Problems Problem Noted Date Diagnosed Date [...] reach out to forms nurses to discuss CARDIOPULMONARY TECHNICIAN AND EEG TECH process and arranging for adult day care Mixed hyperlipidemia 07/23/2022 Overview (07/23/2022): ?? 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 Titre 1:1 04/2022. ?? Confirmed hx of treatment with DPH Assessment & Plan (07/23/2022 6:50 PM EDT): ?? Likely prior infection. Will task RN's to confirm with DP CKD (chronic kidney disease) stage 3, GFR 30-59 ml/min 07/23/2022 Overview (07/23/2022): ?? Followed by [facility] renal transplace ?? Baseline Cr 1.85; eGFR [...] Encounters Date Type Department Care Team Description 05/12/2024 Telephone [facility] [address] [place] [phone] Gracy Cardona FNP Results 05/10/2024 Refill [facility] [address] [place] [address] Gracy Cardona FNP Type 2 diabetes mellitus without complication, without long-term current use of insulin ([facility]); Moderate dementia without behavioral disturbance, psychotic disturbance, mood disturbance, or anxiety, unspecified dementia type ([facility]) 05/09/2024 Telephone [facility] [address] [place] [address] Gracy Cardona FNP Results 05/06/2024 10:00 AM EST Office Visit [facility] [address] [place] [address] Gracy Cardona FNP Unintentional weight loss (Primary Dx); Type 2 diabetes mellitus with stage 3a chronic kidney disease, without long-term current use of insulin ([facility]); Primary hypertension; Dietary counseling; Exercise counseling 05/06/2024 Orders Only [facility] [address] [place] [address] [facility] Cardiomyopathy, unspecified type (CMS/[facility]) (Primary Dx) 05/06/2024 Travel 05/05/2024 Telephone [facility] [address] [place] [address] [facility] chart prep 04/22/2024 Telephone [facility] [address] [place] [address] [facility] Durable Medical Equipment 04/21/2024 Patient Outreach [address] [facility] Pre-visit Planning ((Unable to reach for PVP screening, LVM)) 03/29/[address] [facility] Primary hypertension 03/19/2024 Refill [facility] [address] [place] [address] [facility] Primary hypertension 03/14/2024 Refill [facility] [address] [place] [address] [facility] Cognitive decline; Mixed hyperlipidemia 02/15/[address] [facility] Results from Last 3 Months Immunizations Name Administration Dates Next Due Influenza injectable quadriv alent IIV4 with preservative 01/01/2018 Influenza injectable quadrivalent preservative f ree 12/21/2018 Influenza, High Dose Seasonal, Preservative Free 02/03/2024 Pfizer Covid-19 Vaccine 12+ 07/11/2020, Pfizer Covid-19 Vaccine 12+ rock-sucrose (Peralta Reese ap) 11/14/2021 Pneumococcal Conjugate PCV 20 08/12/2022 [...] 05/06/2024 10:18 AM EST Plan of Treatment Upcoming Encounters Date Type Department Care Team (Late st Contact Info) Description 05/23/2024 11:30 AM EDT Clinical Support [facility] [address] [place] [address] 08/03/2024 10:00 AM EDT Office Visit [facility] [address] [place], [place] [phone] [place], [place], [facility] [address] [place] [address] Health Maintenance Due Date Last Done Comments CT Colonography 1960 Colonoscopy 1960 Colorectal Cancer Screening 1960 FIT DNA/Cologuard 1960 FIT 1960 FOBT 1960 Sigmoidoscopy 1960 Zoster Vaccines (1 of 2) 2008 RSV Patients and Patients Aged 60 years or older (1 - Risk 60-74 years 1-dose series) 2018 COVID-19 Vaccine ( - 2023-2 5 season) 2023 11/14/2021, 07/11/2020, 06/19/2020 Diabetes: Hemoglobin A1C 08/03/2024 025, 02/03/2024, 04/22/2022 Diabetes: Foot Exam 02/02/2025 02/03/2024, 02/03/2024 Lipid Panel 02/02/2025 02/03/2024, 09/23/2022 Alcohol/Substance Use Screening 05/06/2025 05/06/2024 Depression Screening 05/06/2025 05/06/2024, 08/12/2022 SDOH Screening 05/06/2025 05/06/2024 Tobacco Screening 05/08/2025 05/08/2024 Eye Exam 07/14/2025 07/15/2023 DTaP/Tdap/Td Vaccines (2 [...] 11:3 7 AM EST Unintentional weight loss HIV 1/2 ANTIGEN/ANTIBODY, FOURTH GENERATION W/RFL Routine 05/06/2024 11:12 AM EST Unintentional weight loss C-REACTIVE PROTEIN Routine 05/06/2024 11 :12 AM EST Unintentional weight loss SED RATE BY MODIFIED WESTERGREN Routine 05/06/2024 11:12 AM EST Unintentional weight loss TSH W/REFLEX TO FT4 Routine 05/06/2024 1 1:12 AM EST Unintentional weight loss COMPREHENSIVE METABOLIC PANEL Routine 05/06/2024 11:12 AM EST Unintentional weight loss CBC WITH [...] EST Narrative 05/06/2024 11:59 AM EST ? [facility] ?[address] ?[place] [address] ?XRay Report ? Signed ? Patient: Selwyn Valera ?MR#: [id number] ?? [id number] ? : 1960 ?Acct:[id number] ? Age/Sex: 63 / M ?ADM Date: 05/06/24 ? Loc: HO.HHCL ? Attending Dr: Gracy Cardona TRAVEL MANAGER ? Ordering Physician: Gracy Cardona TRAVEL MANAGER ?? Date of Service: 05/06/24 ?? Procedure(s): XR chest 2V ?? Accession Number(s): [id number] ? cc: Gracy Cardona TRAVEL MANAGER ? EXAMINATION: ?? XR CHEST ? CLINICAL [...] DD/ 1137 ? TD/TT: 05/06/24 1149 ? Supervisor Dry Paste: ? Procedure Note Doncandyter, Image - 05/06/[address] [address] XRay Report Signed Patient: Selwyn Valera LMR#: [id number] : 9Acct:[id number] Age/Sex: 63 / MADM Date: 05/06/24 Loc: [facility] Attending Dr: Gracy GAMEZ Ordering Physician: Gracy Cardona Date of Service: 05/06/24 Procedure(s): XR chest 2V Accession Number(s): [id number] cc: Gracy Cardona EXAMINATION: XR CHEST CLINICAL [...] 05/06/24 1156 DD/ 1137 TD/TT: 05/06/24 1149 Supervisor Dry Paste: Gracy MERCEDESP IMG XR PROCEDURES Final Resul t * TSH W/Reflex to FT4 (05/06/2024 11:12 AM EST) TSH reflex Free T4 1.28 0.32 - 4.0 uIU/mL [facility] Blood Venous blood specimen / Unknown 05/06/2024 11:12 AM EST 05/06/2024 1:06 PM EST [facility] TRAVEL MANAGER LAB BLOOD ORDERABLES Final Re sult [facility] [address] [place] [address] [phone] * CBC auto differential (05/06/2024 11:12 AM EST) White Blood Count 9.2 4.8 - 10.8 X10*3/uL [facility] Red Blood Count 4.66 4.60 - 5.80 X10*6/uL [facility] Hemoglobin 15.0 14.0 - 18.0 g/dl [facility] Hematocrit 44.2 42.0 - 52.0 % [facility] Mean Corpuscular Volume 94.8 80.0 - 98.0 fL [facility] Mean Corpuscular Hemoglobin 32.2 27.0 - 33.0 pg [facility] Mean Corpuscular HGB Conc 33.9 31.0 - 36.0 g/dl [facility] Red Cell Distribution Width 13.4 11.0 - 16.0 % [facility] Platelet Count 197 160 - 400 X10*3/uL [facility] Mean Platelet Volume 11.4 9.4 - 12.4 fL [facility] Neutrophils Percent Auto 50.3 45 - 73 % [facility] Imm Gran Pct Auto 0.2 0.0 - 0.4 % [facility] Lymphocytes Percent Auto 39.3 20 - 40 % [facility] Monocytes Percent Auto 7.5 2 - 11 % [facility] Eosinophils Percent Auto 2.3 0 - 4 % [facility] Basophils Percent Auto 0.4 0 - 2 % [facility] NRBC Pct Auto 0.0 0.0 - 0.2 /100WBC [facility] Neutrophils Absolute Auto 4.6 2.0 - 8.3 x10*3/uL [facility] Imm Gran Abs Auto 0.02 0.00 - 0.03 X10*3/uL [facility] Lymphocytes Absolute Auto 3.6 1.2 - 4.9 X10*3/uL [facility] Monocytes Absolute Auto 0.7 0.1 - 1.2 X10*3/uL [facility] Eosinophils Absolute Auto 0.2 0.0 - 0.4 X10*3/uL [facility] Basophils Absolute Auto 0.0 0.0 - 0.2 X10*3/uL [facility] NRBC Abs Auto 0.000 0.0 - 0.012 X10*3/uL [facility] Blood Venous blood specimen / Unknown 05/06/2024 11:12 AM EST 05/06/2024 1:06 PM EST [facility] LAB BLOOD ORDERABLES Final Re sult [facility] [address] [place] [address] [phone] * HIV-1/2 Antigen and Antibodies, Fourth Generation, with Reflexes (05/06/2024 11:12 AM EST) HIV AB/AG Nonreactive Nonreactive [facility] Comment:HIV-1 p24 Ag and/or HIV-1/HIV-2 Ab not detected.A test result that is nonreactive does not exclude thepossibility of exposure to or infection with HIV-1 and/orHIV-2. Nonreactive results in this assay for individualswith prior exposure to HIV-1 and/or HIV-2 may be due toantigen and antibody levels that are below the limit ofdetection of this assay.The Meeps HIV Ag/Ab Combo assay result andsupplemental assay results should be interpreted inconjunction with the patient's clinical presentation,history and other laboratory results. If the results areinconsistent with clinical evidence, additional testing issuggested to confirm the result. Blood Venous blood specimen / Unknown 05/06/2024 11:12 AM EST 05/06/2024 1:06 PM EST [facility] LAB BLOOD ORDERABLES Final Re sult Performing Organization Address City/[facility]/ZIP Co de Phone Number [facility] [address] [place] [phone] * Sed Rate by Modified [place] (05/06/2024 11:12 AM EST) Erythrocyte Sedimentation Rate 8 0 - 15 MM/HR [facility] Comment:Patients with polycy themia and many hemoglobin abnormalitiesmay have depressed sed rates whereas patients with anemiamay have elevated sed rates. Blood Venous blood specimen / Unknown 05/06/2024 11:12 AM EST 05/06/2024 1:06 PM EST [facility] LAB BLOOD ORDERABLES Final Re sult Performing Organization Address City/[facility]/ZIP Co de Phone Number [facility] [address] [place] [phone] * C-reactive Protein (05/06/2024 11:12 AM EST) C Reactive Protein <0.10 < or = 0.50 mg/dL [facility] Blood Venous blood specimen / Unknown 05/06/2024 11:12 AM EST 05/06/2024 1:06 PM EST [facility] LAB BLOOD ORDERABLES Final Re sult Performing Organization Address City/[facility] Co de Phone Number [facility] [address] [place] [phone] * (ABNORMAL) Comprehensive Metabolic Panel (05/06/2024 11:12 AM EST) Pathologist [facility] Sodium 141 135 - 145 mmol/L [facility] Potassium 3.6 3.3 - 5.1 mmol/L [facility] Chloride 107 96 - 108 mmol/L [facility] Carbon Dioxide 28 22 - 29 mmol/L [facility] Anion Gap 10(L) 12 - 20 [facility] Urea Nitrogen (BUN) 14 9 - 16 mg/dL [facility] Creatinine, Serum 1.23 0.5 - 1.4 mg/dL [facility] Estimated Glomerular Filt Rate 59 [facility] Comment:Chronic Kidney Disea se: Estimated GFR < 60 mL/min/1.53w4Qrgkow Kidney Disease: Estimated GFR < 15 mL/min/1.73m2 Glucose 85 60 - 115 mg/dL [facility] Calcium 9.6 8.4 - 10.2 mg/dL [facility] Bilirubin, Total 0.5 0.0 - 1.0 mg/dL [facility] Aspartate Amino Transferase 30 5 - 37 U/L [facility] Alanine Aminotransferase 33 0 - 40 U/L [facility] Total Protein 7.9 6.5 - 8.0 g/dL [facility] Albumin Level 4.0 3.5 - 5.0 g/dL [facility] Alkaline Phosphatase 94 39 - 117 U/L [facility] Blood Venous blood specimen / Unknown 05/06/2024 11:12 AM EST 05/06/2024 1:06 PM EST [facility] TRAVEL MANAGER LAB BLOOD ORDERABLES Final Re sult [facility] [address] [place], [place] [phone] * POCT Glucose (05/06/2024 10:24 AM EST) Glucose Blood, POC 142 60 - 200 mg/dL Comment:random QC Media Lot # [id number] Lot# Expiration Date [id number] Blood Capillary blood specimen / Unknown 05/06/2024 10:24 AM EST [facility] POINT OF [...] 1:24 PM EST) Triglycerides 133 <150 mg/dL [facility] Comment:Desirable Triglyceri de: less than 150 mg/dLBorderline High Triglyceride 150-199 mg/dLHigh Triglyceride: 200-499 mg/dLVery High Triglyceride: greater than or equal to 5OO mg/dL Cholesterol 144 <200 mg/dL [facility] Comment:Desirable Cholestero l: less than 200 mg/dLBorderline High Cholesterol: 200-239 mg/dLHigh Cholesterol: greater than 239 mg/dL LDL Cholesterol Calculated 82 <100 mg/dL [facility] Comment:Desirable LDL: less than 100 mg/dLNear Optimal/Above Optimal LDL: 110- 129 mg/dLBorderline High LDL: 130-159 mg/dLHigh LDL: 160-189 mg/dLVery High LDL: greater than or equal to 190 mg/dL HDL Cholesterol 36(L) >40 mg/dL [facility] Comment:Desirable HDL: great er than 40 mg/dL Note: This HDL assay may give artificially low results in patients with liver disease. Blood Venous blood specimen / Unknown 02/03/2024 1:24 PM EST 02/03/2024 4:29 PM EST [facility] LAB BLOOD ORDERABLES Final Re sult [facility] [address] [place] [address] [phone] * Hepatitis C Viral RNA, Quantitative, Real-Time PC (04/22/2022 9:55 AM EST) HCV RNA, QN Real Time PCR <15 NOT DETECTED NOT DETECTED IU/mL [facility] [employer] [place] [employer] HCV RNA QN Real Time PCR <1.18 NOT DETECTED NOT DETECTED Log IU/mL [facility] [place] [employer] Comment: This test was performed using Real-Time Polymerase Chain Reaction. Reportable Range: 15 IU/mL to 100,000,000 IU/mL (1.18 Log IU/mL to 8.00 Log IU/mL). ?? The analytical performance characteristics of this assay have been determined by [employer]. The modifications have not been cleared or approved by the FDA. This assay has been validated pursuant to the CLIA regulations and is used for clinical purposes. ?? For more information on this test, go to: http://education.Qwenty/faq/XUX26v2 (This link is being provided for informational/ educational purposes only.) 04/22/2022 9:55 AM EST 04/22/2022 9:55 AM EST Narrative [facility] - 04/23/2022 1:58 PM EST FASTING:YES FASTING: YES us Romel Bhandari MD LAB BLOOD ORDERABLES Final Resul t [facility] [address], [place] [address] [employer] [facility], [facility] [address] [facility], ([address]) [place] [phone] from Last 3 Months or Most Recently Relevant to Health Maintenance Insurance [address] [place] [address] [facility] [place] [address] Care Teams Regulatory Consultant Relationship Specialty Start Date End Date Gracy Cardona FNP [address] [place] [phone] PCP - General Family Medicine 06/04/22
--- OUTSIDE RECORDS SUMMARY | 2024-05-14 07:16 | XMS_ITS | Encounter Summary ---
Author Organization [employer] Address [address] [facility] 7t [place] [address] Care Team Providers Care English Language Learner Tutor Name Role Phone [facility] Primary Care Provider [phone] Reason for Visit * Reason Comments Pre-visit Planning (Unable to reach for PVP screening, LVM) Encounter Details Date Type Department Care Team ([facility] Contact Info) Description 04/21/2024 Patient Outreach [facility] [address] [place] [address] [employer], [facility] [address] [place] [address] Pre-visit Planning ((Unable to reach for PVP [...] 11:30 AM EDT Clinical Support [facility] [address] [place] [address] 08/03/2024 10:00 AM EDT Office Visit [facility] [address] [place] [address] Gracy Cardona FNP [address] [place] [phone] documented as of this encounter Goals Goal [...] documented as of this encounter Care Teams English Language Learner Tutor Relationship Specialty Start Date End Date Gracy Cardona FNP [address] [place] [address] [place] [address] PCP - General Family Medicine 06/04/22 documented as of this encounter
--- OUTSIDE RECORDS SUMMARY | 2024-05-14 07:16 | XMS_ITS | Encounter Summary ---
Author Organization [employer] Address [address] [facility] 7t [place] [address] Care Team Providers Care Service Desk Manager Name Role Phone [facility] Primary Care Provider [phone] Reason for Visit * Reason Onset Date Comments Durable Medical Equipment 04/22/2024 Encounter Details Date Type Department Care Team ([facility] st Contact Info) Description 04/22/2024 Telephone [facility] [address] [place], [place] [phone] [place] [facility] [address] [place], [place] [phone] Durable Medical Equipment Social History Tobacco Use [...] encounter Miscellaneous Notes * Telephone Encounter - Eva Taylor - 05/06/2024 2:10 PM EST DME RX for Wipes generated and placed on providers desk for signature. * Telephone Encounter - Rangel Taylor - 04/22/2024 9:59 AM EST Tc from daughter requesting for a script for wipes for pt. If any questions you can contact daughter at [phone]. documented in this encounter Plan of Treatment Upcoming Encounters Date Type Department Care Team ([facility] st Contact Info) Description 05/23/2024 11:30 AM EDT Clinical Support [facility] [address] [place] [phone] 08/03/2024 10:00 AM EDT Office Visit [facility] [address] [place] [address] [place] [facility] [address] [place] [address] documented as of this encounter Goals Goal [...] documented as of this encounter Care Teams Service Desk Manager Relationship Specialty Start Date End Date Gracy Cardona FNP [address] [place] [address] PCP - General Family Medicine 06/04/22 documented as of this encounter
--- NOTE | 2024-05-14 08:02 | ED.GIBLEED ---
HPI - GI Bleed General Chief complaint: Abdominal Pain Stated complaint: Rectal bleeding Time Seen by Provider: 05/14/24 07:15 Source: patient, family and old records reviewed Mode of arrival: ambulatory Limitations: no limitations History of Present Illness ED Provider: CARLOS DASH Narrative: 63 yo male with PMH of HTN, TBI, depression, anxiety, HLD, DM not on blood thinners here with c/o being constipated x 2 days family gave him a laxative then he was very anxious and wanted to have a BM right away so he sat on the toilet and pushed then noted some scant blood no clots in the toilet. He then tried to take a qtip and clean his rectum. No worsening bleeding or pain after that. He has been pushing the daughter states. He is not on a blood thinner. He has no pain on arrival to the ED now. He came after daughter noted blood in toilet. He has had a constipation on and off in the past. MD complaint: blood on toilet paper Onset (ago): day(s) (this AM) Pain Consistency: now resolved Severity: mild Relieving factors: bowel movement Exacerbating factors: bowel movement Context: other (constipation) Associated symptoms: denies other symptoms Treatments Prior to Arrival: OTC meds Related Data Previous Rx's ?Medication ?Instructions ?Recorded hydrochlorothiazide 25 mg tablet 25 mg PO QAM #90 tabs 03/28/20 blood sugar diagnostic (FreeStyle #100 ea 03/30/20 Test strips) lancets 28 gauge (FreeStyle #100 ea 03/30/20 Lancets) clonidine HCl 0.3 mg tablet 0.3 mg PO BID 90 days #180 tabs 04/16/20 fluoxetine 20 mg capsule 60 mg (3 x 20 mg) PO DAILY #270 05/10/20 caps lisinopril 40 mg tablet 40 mg PO DAILY #90 tabs 05/29/20 pioglitazone 15 mg tablet 15 mg PO DAILY 90 days #90 tabs 05/29/20 bupropion HCl 200 mg tablet,12 hr 200 mg PO QAM #90 caps 06/20/20 sustained-release simvastatin 40 mg tablet 40 mg PO QPM #90 tabs 07/30/20 nifedipine 90 mg tablet,extended 90 mg PO DAILY 90 days #90 tabs 08/30/20 release docusate sodium 100 mg capsule 100 mg PO BID PRN constipation #30 05/14/24 (Colace) caps sennosides 8.6 mg capsule (senna) 8.6 mg PO BEDTIME PRN constipation 05/14/24 #30 caps Allergies Allergy/AdvReac Type Severity Reaction Status Date / Time No Known Allergies Allergy Verified 05/14/24 06:51 Review of Systems Review of Systems: Constitutional : No Weight loss, No Fever, No Chills ENT/Mouth : No sore throat, No Rhinorrhea Eyes: No Swelling, No Redness Cardiovascular : No Chest Pain, No SOB, NoEdema Respiratory : No Cough, No Sputum, No Wheezing Gastrointestinal : no Nausea, no Vomiting, no Diarrhea, positive abdominal Pain, pos Hematochezia, No Melena, pos constipation Genitourinary : No Dysuria, No Urinary Frequency, No Hematuria, No Urgency Musculoskeletal : No joint pain, No Myalgias, No Joint Swelling Skin : No Skin Lesions, No rash Neuro : No Weakness, No Numbness, No Dizziness, No Headache Psych : No Anxiety/Panic, No Depression Heme/Lymph: No Bruising, No Lymphadenopathy Endocrine : No Polyuria, No Polydipsia All other systems reviewed and are negative. [facility] Past Medical History Attestation statement: The following information was validated with the patient. Source: old records reviewed Medical History (Updated 05/14/24 @ 14:17 by Denise Sumner DO) Hypertension, essential Depression, major Anxiety, generalized Traumatic brain injury Lipid disorder Diabetes 1.5, managed as type 2 Surgical History No pertinent past surgical history Family History Family History Father HTN (hypertension) Mother Stroke Diabetes mellitus HTN (hypertension) Son No problems noted. Son No problems noted. Daughter No problems noted. Daughter No problems noted. Daughter No problems noted. Daughter No problems noted. Sister No problems noted. Sister No problems noted. Sister No problems noted. Sister No problems noted. Sister No problems noted. Sister No problems noted. Sister No problems noted. Social History Social History (Updated 05/14/24 @ 10:07 by Denise Sumner DO) Patient Tobacco Use Status: Tobacco use Unknown Advance Directives: No Advance Directives Information Provided: No Advance Directives on File: No Do you have a plan to hurt others: No Plan Physical Exam Vital Signs: Vital Signs: Last Vital Signs Temp 97.8 F 05/14/24 10:50 Pulse 62 05/14/24 10:50 Resp 16 05/14/24 10:50 BP 146/83 H 05/14/24 10:50 Pulse Ox 98 05/14/24 10:50 O2 Del Method Room Air 05/14/24 10:50 BMI result Body Mass Index 35.7 Appearance: Alert. Oriented X3. No acute distress. Eyes: Pupils equal, round and reactive to light. ENT: Pharynx normal. Neck: Normal inspection. Neck supple. CVS: Normal heart rate and rhythm. Pulses normal. Respiratory: No respiratory distress. Breath sounds normal. Abdomen: Soft and nontender. Rectal: light brown soft stool on digit no blood seen, no ext hemorrhoids, internal hemorrhoids felt Skin: Skin warm and dry. Normal skin color. Normal skin turgor. Extremities: No lower extremity edema. No calf ttp Neuro: Oriented X 3. No motor deficit. No sensory deficit. CN2-12 intact Medications Administered Discontinued Medications Generic Name Dose Route Start Last Admin Trade Name Freq PRN Reason Stop Dose Admin Iohexol 85 ml 05/14/24 13:33 05/14/24 13:34 Iohexol 350 Mg/Ml 100 Ml Infus..Btl IV 05/14/24 13:34 85 ml ONCE ONE Administration Medical Decision Making Medical Decision Making [facility] Narrative: 63 yo male with PMH of HTN, TBI, depression, anxiety, HLD, DM not on blood thinners here with c/o constipation and states he stuck a qtip in rectum but then said pencil he has no pain on exam and no blood on my digit - has internal hemorroids. At this time will obtain basic labs, CT scan given insertion of FB for perforation. He overall is not toxic and well appearing and has non acute abdomen Differential Diagnosis Differential Diagnoses: The differential diagnosis associated with the presentation includes mass, constipation, internal hemorroids, rectal injury Admission/Observation Consideration of admission/observation: Escalation of care including admission/observation considered H/H stable no bleeding here CT scan negative Lab Data [facility] Lab Attestation statement: I reviewed the patient's lab results. H/H stable 05/14/24 08:30 05/14/24 08:30 Labs: Lab Results 05/14/24 05/14/24 Range/Units 08:30 12:11 WBC 14.3 H (4.8-10.8) X10*3/uL RBC 5.07 (4.60-5.80) X10*6/uL Hgb 16.1 (14.0-18.0) g/dl Hct 46.6 (42.0-52.0) % MCV 91.9 (80.0-98.0) fL MCH 31.8 (27.0-33.0) pg MCHC 34.5 (31.0-36.0) g/dl RDW 13.2 (11.0-16.0) % Plt Count 226 (160-400) X10*3/uL MPV 10.4 (9.4-12.4) fL Immature Gran % (Auto) 0.4 (0.0-0.4) % Neut % (Auto) 73.3 H (45-73) % Lymph % (Auto) 19.5 L (20-40) % [place] % (Auto) 5.7 (2-11) % Eos % (Auto) 0.8 (0-4) % Baso % (Auto) 0.3 (0-2) % Lymph # (Auto) 2.8 (1.2-4.9) X10*3/uL [place] # (Auto) 0.8 (0.1-1.2) X10*3/uL Eos # (Auto) 0.1 (0.0-0.4) X10*3/uL Baso # (Auto) 0.0 (0.0-0.2) X10*3/uL Abs Immat Gran (auto) 0.06 H (0.00-0.03) X10*3/uL Absolute Neuts (auto) 10.5 H (2.0-8.3) x10*3/uL Absolute Nucleated RBC 0.000 (0.0-0.012) X10*3/uL Nucleated RBC % (auto) 0.0 (0.0-0.2) /100WBC Sodium 137 (135-145) mmol/L Potassium 3.7 (3.3-5.1) mmol/L Chloride 106 (96-108) mmol/L Carbon Dioxide 21 L (22-29) mmol/L Anion Gap 14 (12-20) BUN 13 (9-16) mg/dL Creatinine 1.04 (0.5-1.4) mg/dL Estim Creat Clear Calc 91.7 Estimated GFR > 60 POC Glucose 123 H (60-115) mg/dL Random Glucose 135 H (60-115) mg/dL Calcium 9.5 (8.4-10.2) mg/dL Total Bilirubin 0.8 (0.0-1.0) mg/dL AST 55 H (5-37) U/L ALT 65 H (0-40) U/L Alkaline Phosphatase 105 (39-117) U/L Total Protein 9.0 H (6.5-8.0) g/dL Albumin 4.5 (3.5-5.0) g/dL Lipase 18 (8-78) U/L Stool Occult Blood POSITIVE (NEGATIVE) Independent Interpretation I performed an independent interpretation of an: CT Scan (normal ) Radiology Impression Discussion of test interpretation with radiology: I have reviewed the radiologist's reading. Independent Historian Clinical information obtained from an independent historian. History obtained from or confirmed by: Other (daughter) External Record Review External record reviewed: Outpatient record Prescription Management I considered prescription management with: Other Discharge Plan Discharge Clinical Impression: Bleeding internal hemorrhoids Patient Disposition: Home, Self-Care Instructions: Hemorrhoids (ED) Additional Instructions: for the next week take the 2 medications as prescribed labs reassuring CT scan no acute findings return for worsening symptoms such as increased bleeding or pain/dizziness. Prescriptions: New docusate sodium [Colace] 100 mg capsule 100 mg PO BID PRN (Reason: constipation) Qty: 30 0RF senna 8.6 mg capsule 8.6 mg PO BEDTIME PRN (Reason: constipation) Qty: 30 0RF No Action hydrochlorothiazide 25 mg tablet 25 mg PO QAM Qty: 90 1RF (DME) FreeStyle Test Strip See Rx Instructions .ROUTE .MEDSUPPLY Qty: 100 0RF Rx Instructions: Check once a day in the morning (DME) lancets [FreeStyle Lancets] 28 gauge misc See Rx Instructions .ROUTE .MEDSUPPLY Qty: 100 0RF Rx Instructions: Check once a day in the morning clonidine HCl 0.3 mg tablet 0.3 mg PO BID 90 Days Qty: 180 0RF fluoxetine 20 mg capsule 60 mg PO DAILY Qty: 270 0RF pioglitazone 15 mg tablet 15 mg PO DAILY 90 Days Qty: 90 0RF lisinopril 40 mg tablet 40 mg PO DAILY Qty: 90 0RF bupropion HCl 200 mg tablet sustained-release 12 hr 200 mg PO QAM Qty: 90 0RF simvastatin 40 mg tablet 40 mg PO QPM Qty: 90 0RF nifedipine 90 mg tablet extended release 90 mg PO DAILY 90 Days Qty: 90 0RF Print Language: Emirati
[2024-05-14 08:37] LABS: MANUAL DIFF FLAG NO
[2024-05-14 08:39] LABS: OBS Int Ctl Valid YES; OBS1 POSITIVE (NEGATIVE)
[2024-05-14 08:40] LABS: Basophils Percent Auto 0.3 % (0-2); Eosinophils Absolute Auto 0.1 X10*3/uL (0.0-0.4); Eosinophils Percent Auto 0.8 % (0-4); Hematocrit 46.6 % (42.0-52.0); Hemoglobin 16.1 g/dl (14.0-18.0); Imm Gran Abs Auto 0.06 X10*3/uL (0.00-0.03); Imm Gran Pct Auto 0.4 % (0.0-0.4); Lymphocytes Absolute Auto 2.8 X10*3/uL (1.2-4.9); Lymphocytes Percent Auto 19.5 % (20-40); Mean Corpuscular HGB Conc 34.5 g/dl (31.0-36.0); Mean Corpuscular Hemoglobin 31.8 pg (27.0-33.0); Mean Corpuscular Volume 91.9 fL (80.0-98.0); Mean Platelet Volume 10.4 fL (9.4-12.4); Monocytes Absolute Auto 0.8 X10*3/uL (0.1-1.2); Monocytes Percent Auto 5.7 % (2-11); Neutrophils Absolute Auto 10.5 x10*3/uL (2.0-8.3); Neutrophils Percent Auto 73.3 % (45-73); Platelet Count 226 X10*3/uL (160-400); Red Blood Count 5.07 X10*6/uL (4.60-5.80); Red Cell Distribution Width 13.2 % (11.0-16.0); White Blood Count 14.3 X10*3/uL (4.8-10.8)
[2024-05-14 09:10] LABS: Albumin Level 4.5 g/dL (3.5-5.0); Alkaline Phosphatase 105 U/L (39-117); Anion Gap 14 (12-20); Aspartate Amino Transferase 55 U/L (5-37); Bilirubin Total 0.8 mg/dL (0.0-1.0); Blood Urea Nitrogen 13 mg/dL (9-16); Calcium 9.5 mg/dL (8.4-10.2); Carbon Dioxide 21 mmol/L (22-29); Chloride 106 mmol/L (96-108); Creatinine Clr Calc Pharmacy 91.7; Estimated Glomerular Filt Rate > 60; Glucose Random 135 mg/dL (60-115); Lipase 18 U/L (8-78); Potassium 3.7 mmol/L (3.3-5.1); Sodium 137 mmol/L (135-145)
[2024-05-14 10:15] LABS: Alanine Aminotransferase 65 U/L (0-40)
[2024-05-14 10:50] VITALS: BP 146/83; PULSE 62; RESP 16; TEMP 36.6; O2SAT 98
[2024-05-14 12:16] LABS: Glucose, Whole Blood 123 mg/dL (60-115)
[2024-05-14] MEDS: iohexoL 350 MG/ML 100 ML INFUS..BTL 85 ML IV (13:34)
[2024-05-14 14:19] VITALS: BP 129/76; PULSE 89; RESP 18; TEMP 36.6; O2SAT 96
== END 2024-05-14 17:01 | disposition home or self-care (01) ==
PROVIDERS: Emergency Provider Emergency Medicine; PCP Registered Nurse
DX: K64.8 Other hemorrhoids (principal); E11.9 Type 2 diabetes mellitus without complications; I10 Essential (primary) hypertension; E78.5 Hyperlipidemia, unspecified; Z87.820 Personal history of traumatic brain injury; Z79.02 Long term (current) use of antithrombotics/antiplatelets; Z79.899 Other long term (current) drug therapy
CPT/HCPCS: 36415; 74018; 74177; 80053; 82272; 82947; 83690; 85025; 99283; 99284; Q9967

== ENCOUNTER → 2024-05-14 08:19 | Outpatient (BNV) | payer OTHER, SELFPAY | PROVIDERS: Emergency Provider Emergency Medicine; PCP Registered Nurse; Visit Provider Radiology Diagnostic Radiology | DX: K59.00 Constipation, unspecified (principal); R10.30 Lower abdominal pain, unspecified; R14.0 Abdominal distension (gaseous) | CPT/HCPCS: 74018; 74177 ==

== ENCOUNTER → 2024-06-14 07:48 | Outpatient (REF) | payer OTHER, SELFPAY ==
--- OUTSIDE RECORDS SUMMARY | 2024-06-14 07:51 | XMS_ITS | Encounter Summary ---
Demographics Address [address] [facility] [address] [place] [address] Home Phone Preferred Language en Marital Status Unknown Latter Day Affiliation Unknown Race Unknown Ethnic Group Unknown Author Organization [facility] Address [address] [facility] [address] [place] [address] Phone Care Team Providers Care Parole Hearing Officer Name Role Phone Romel Bhandari MD Primary Care Provider [phone] Reason for Visit * Reason Comments Med Refill Encounter Details Date Type Department Care Team (Late st Contact Info) Description 03/14/2024 Refill [facility] [address] [place] [address] [place] [phone] Mikal Tsai MD [address] [facility] [address] [place] [address] Social History Tobacco Use Types [...] on filedocumented in this encounter Care Teams Parole Hearing Officer Relationship Specialty Start Date End Date Romel Bhandari MD [address] [place] [phone] PCP - General Emergency Medicine 04/28/22 documented as of this encounter
--- OUTSIDE RECORDS SUMMARY | 2024-06-14 07:51 | XMS_ITS | Clinical Summary ---
Demographics Address [address] [facility] [address] [place] [address] Home Phone Preferred Language en Marital Status Unknown Jain Affiliation Unknown Race Unknown Ethnic Group Unknown Author Organization [facility] Address [address] [facility] [address] [place] [address] Phone Care Team Providers Care Wad Compressor Operator Adjuster Name Role Phone Romel Bhandari MD Primary Care Provider [phone] Allergies No known active allergies Medications triamterene-hy [...] 3 07/23/2022 Overview (08/07/2022): ?? [facility]ed [facility] ?? [...] reach out to forms nurses to discuss BUNDLE HELPER process and arranging for adult day care Mixed hyperlipidemia 07/23/2022 Overview (08/07/2022): ?? Atorvastatin 80mg daily Syphilis test finding 07/23/2022 Overview (08/07/2022): ?? Titre 1:1 04/2022. Pt reports thinking he was treated a long time ago Last Assessment & Plan: ?? Likely prior infection. Will task RN's to confirm with DP Type 2 diabetes mellitus without complication Traumatic brain injury 04/17/2022 Obstructive sleep apnea syndrome 04/17/2022 Forgetful 04/17/2022 Hypertensive disorder 04/17/2022 Immunizations Name Administration Dates Next Due Influenza, [...] mg/dl PVNMA 08/25/2019 us [facility] Conversion LAB [id number] LICITED RESULTS Final Result PVNMA from Last 3 Months or Most Recently Relevant to Health Maintenance Insurance MEDICARE MEDICAID [place] [facility] Care Teams Wad Compressor Operator Adjuster Relationship Specialty Start Date End Date Romel Bhandari MD [address] [place] [phone] PCP - General Emergency Medicine 04/28/22
--- OUTSIDE RECORDS SUMMARY | 2024-06-14 07:51 | XMS_ITS | Encounter Summary ---
Author Organization [employer] [facility] Address [address] [place] [address] 7t [place] [address] Care Team Providers Care Staff Writer Name Role Phone [facility] Primary Care Provider [phone] Encounter Details Date Type Department Care Team (Late Contact Info) Description 11/06/2022 Orders Only [facility] MED[facility] [address] [place] [address] [phone] Chantel Brito MA Social History Tobacco Use [...] Encounters Date Type Department Care Team (Late Contact Info) Description 08/03/2024 10:00 AM EDT Office Visit [facility] [address] [place] [address] [phone] [place] [address] [address] documented as of this encounter Goals Goal [...] documented as of this encounter Care Teams Staff Writer Relationship Specialty Start Date End Date Gracy Cardona FNP [address] [place] [address] PCP - General Family Medicine 06/04/22 documented as of this encounter
--- OUTSIDE RECORDS SUMMARY | 2024-06-14 07:51 | XMS_ITS | Clinical Summary ---
Author Organization [employer] Address [address] [facility] 7[address] [place] [address] Care Team Providers Care Insole Buffer Name Role Phone Gracy Cardona [facility] Primary Care Provider [phone] Allergies No known active allergies Medications Farxiga [...] A DAY 50 each 11 3 Active ammonium lactate (Lac-Hydrin) 12 % lotionIndications: Type 2 diabetes mellitus with stage 3a chronic kidney disease, without long-term current use of insulin (CMS/[facility]) Apply topically if needed for dry skin. [...] EVERY MORNING 45 tablet 1 5 Active metFORMIN XR (Glucophage-XR) 500 MG 24 hr tabletIndications: Type 2 diabetes mellitus without complication, without long-term current use of insulin (CMS/HCC) TAKE 1 TABLET BY MOUTH TWICE DAILY IN THE MORNING AND IN THE EVENING WITH FOOD 180 tablet 5 Active Memantine HCl ER 7 MG capsule sustained-release 24 hrIndications:Mode rate dementia without behavioral disturbance, psychotic disturbance, mood disturbance, or anxiety, unspecified dementia type (CMS/HCC) TAKE 1 CAPSULE BY MOUTH EVERY MORNING 90 capsule 5 Active Active Problems Problem Noted Date Diagnosed Date Dizziness 09/08/2022 Moderate dementia 07/23/2022 Overview (07/23/2022): ?? Memory loss worsening over the past several months. Gets confused about where he is. Gets lost walking home from [employer] ?? On memantine 7mg ER initiated from [...] reach out to forms nurses to discuss INFORMATION SYSTEMS MANAGER process and arranging for adult day care Mixed hyperlipidemia 07/23/2022 Overview (07/23/2022): ?? 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 Titre 1:1 04/2022. ?? Confirmed hx of treatment with [facility] Assessment & Plan (07/23/2022 6:50 PM EDT): ?? Likely prior infection. Will task RN's to confirm with [facility] CKD (chronic kidney disease) stage 3, [...] Encounters Date Type Department Care Team Description 05/26/2024 11:00 AM EDT Clinical Support [facility] [address] [place] [phone] Carly Cowan RN 05/26/2024 Travel 05/14/2024 Orders Only GENERIC EXTERNAL DATA DEPARTMENT Provider, Generic External Data 05/12/2024 Telephone [facility] [address] [place] [phone] Gracy Cardona FNP Results 05/10/2024 Refill [facility] [address] [place] [address] [place] [address] Gracy Cardona FNP Type 2 diabetes mellitus without complication, without long-term current use of insulin ([facility]); Moderate dementia without behavioral disturbance, psychotic disturbance, mood disturbance, or anxiety, unspecified dementia type ([facility]) 05/09/2024 Telephone [facility] [place] [address] Gracy Cardona FNP Results 05/06/2024 10:00 AM EST Office Visit [facility] [place] [address] Gracy Cardona FNP Unintentional weight loss (Primary Dx); Type 2 diabetes mellitus with stage 3a chronic kidney disease, without long-term current use of insulin ([facility]); Primary hypertension; Dietary counseling; Exercise counseling 05/06/2024 Orders Only [facility] [address] [place] [address] Gracy Cardona FNP Cardiomyopathy, unspecified type (CMS/HCC) (Primary Dx) 05/06/2024 Travel 05/05/2024 Telephone [facility] [address] [place] [address] Gracy Cardona FNP chart prep 04/22/2024 Telephone [facility] [address] [place] [address] Gracy Cardona FNP Durable Medical Equipment 04/21/2024 Patient Outreach [facility] [address] [place] [address] Gracy Cardona FNP Pre-visit Planning ((Unable to reach for PVP screening, LVM)) 03/29/2024 Refill [facility] [address] [place] [address] Gracy Cardona FNP Primary hypertension 03/19/2024 Refill [facility] [address] [place], [place] [phone] Gracy Cardona FNP Primary hypertension from Last 3 Months Immunizations Name Administration [...] Sign Reading Time Taken Comments Blood Pressure 118/78 05/26/2024 11:38 AM EDT Pulse 66 05/26/2024 11:37 AM EDT Temperature 34.6 ??C (94.3 ??F) 05/26/2024 11:37 AM E DT Respiratory Rate 16 05/26/2024 11:37 AM EDT Oxygen Saturation 100% 05/26/2024 11:37 AM EDT Inhaled Oxygen Concentration - - Weight 118 kg (259 lb 8 oz) 05/06/2024 10:18 AM EST Height 180.3 cm (5' 11 ) 05/06/2024 10:18 AM EST Body Mass Index 36.19 05/06/2024 10:18 AM EST Plan of Treatment Upcoming Encounters Date Type Department Care Team (Late st Contact Info) Description 08/03/2024 10:00 AM EDT Office Visit [facility] [address] [place] [address] [facility], [facility] [address] [place] [address] Health Maintenance Due Date Last Done Comments CT Colonography 1960 Colonoscopy 1960 Colorectal Cancer Screening 1960 FIT DNA/Cologuard 1960 FIT 1960 FOBT 1960 Sigmoidoscopy 1960 Zoster Vaccines (1 of 2) 2008 RSV Patients and Patients Aged 60 years or older (1 - Risk 60-74 years 1-dose series) 2018 COVID-19 Vaccine (2023-2 5 season) 2023 11/14/2021, 07/11/2020, 06/19/2020 Diabetes: [...] Procedure Name Priority Date/Time Associated Diagnosis Comments CT ABDOMEN PELVIS W CONTRAST Routine 05/14/2024 2:13 PM EST GLUCOSE, WHOLE BLOOD Routine 05/14/2024 12:11 PM EST XR KUB AND UPRIGHT 2 VIEWS Routine 05/14/2024 10:37 AM EST CBC WITH AUTO DIFFERENTIAL Routine 05/14/2024 8:30 AM EST OBSX1 Routine 05/14/2024 8:30 AM EST XR CHEST 2 VIEWS Routine 05/06/2024 11:3 [...] disease, without long-term current use of insulin ([facility]) POCT GLYCATED HEMOGLOBIN, TOTAL Routine 05/06/2024 10:23 [...] Recently Relevant to Health Maintenance Results * CT Abdomen Pelvis w/ Contrast (05/14/2024 2:13 PM EST) Anatomical Region Laterality Modality Body, Pelvis, Abdomen Computed T omography 05/14/2024 2:13 PM EST Narrative 05/14/2024 2:16 PM EST ? [facility] ?[address] ?[place] [address] ? CT Scan Report ? Signed ? Patient: Selwyn Valera ?MR#: [id number] ?? [id number] ? : 1960 ?Acct:[id number] ? Age/Sex: 63 / M ?ADM Date: 05/14/24 ? Loc: HO.ED ? Attending Dr: ? Ordering Physician: Denise Sumner DO ?? Date of Service: 05/14/24 ?? Procedure(s): CT abdomen pelvis w IV con ?? Accession Number(s): [id number] ? cc: Denise Sumner DO; Gracy Cardona [employer] ? Report Number: ?? [id number]: Total DLP = ??946.00 mGy-cm ? CLINICAL HISTORY: lower abdominal constipation, FB insertion at home ? Exam: CT Abdomen and Pelvis With IV Contrast ? Comparison: Ultrasound 08/05/2018. ? Findings: ?? The liver density is homogeneous. ?? No biliary abnormalities. ?? The spleen is normal in size. ?? No pancreatic ductal dilatation. ?? No hydronephrosis. There are two 8 and 10 mm benign left kidney exophytic ?? cysts. ? Normal bowel caliber. There is a small 2 cm wide-mouth umbilical hernia ?? containing anterior wall of small bowel without bowel obstruction. ?? The bowel pattern is nonobstructed. ?? The appendix is normal. ? No free fluid/free air. ?? No vascular abnormalities. ?? No adenopathy. ?? Bladder outline is smooth. There is mild symmetric enlargement of the ?? prostate gland. ?? Mesorectal space, urogenital diaphragm are unremarkable. Perianal tissues ?? unremarkable without signs of abscess or fistula by CT. ?? No suspicious skeletal lesions. ? Impression: ?? Unremarkable CT of the abdomen and pelvis. Specifically no signs of ?? radiopaque foreign body. ? This document has been electronically signed by: Mikal Villalpando MD on ?? 05/14/2024 14:13:50 ? Dictated By: ?Mikal Villalpando MD ? Signed By: ?<Electronically signed by Mikal Villalpando MD in OV> ?05/14/24 1414 ? DD/ 1413 ? TD/TT: 05/14/24 1413 ? Middleware Architect: ? Procedure Note Jeronimo Pollard - 05/14/[address] [address] [place] Scan Report Signed Patient: Selwyn Valera LMR#: [id number] 719 : 9Acct:[id number] Age/Sex: 63 / MADM Date: 05/14/24 Loc: HO.ED Attending Dr: Ordering Physician: Denise Sumner DO Date of Service: 05/14/24 Procedure(s): CT abdomen pelvis w IV con Accession Number(s): [id number] cc: Denise Sumner DO; [facility] [employer] Report Number: [id number]: Total DLP = 946.00 mGy-cm CLINICAL HISTORY: lower abdominal constipation, FB insertion at home Exam: CT Abdomen and Pelvis With IV Contrast Comparison: Ultrasound 08/05/2018. Findings: The liver density is homogeneous. No biliary abnormalities. The spleen is normal in size. No pancreatic ductal dilatation. No hydronephrosis. There are two 8 and 10 mm benign left kidney exophytic cysts. Normal bowel caliber. There is a small 2 cm wide-mouth umbilical hernia containing anterior wall of small bowel without bowel obstruction. The bowel pattern is nonobstructed. The appendix is normal. No free fluid/free air. No vascular abnormalities. No adenopathy. Bladder outline is smooth. There is mild symmetric enlargement of the prostate gland. Mesorectal space, urogenital diaphragm are unremarkable. Perianal tissues unremarkable without signs of abscess or fistula by CT. No suspicious skeletal lesions. Impression: Unremarkable CT of the abdomen and pelvis. Specifically no signs of radiopaque foreign body. This document has been electronically signed by: Mikal Villalpando MD on 05/14/2024 14:13:50 Dictated By: Mikal Villalpando MD Signed By: <Electronically signed by Mikal Villalpando MD in OV> 05/14/24 1414 DD/ 141 TD/TT: 05/14/24 141 Middleware Architect: [facility] External Provider IMG CT PROCEDURES Edited Result - Final * (ABNORMAL) Glucose, Whole Blood (05/14/2024 12:11 PM EST) Glucose, Whole Blood 123(H) 60 - 115 mg/dL [facility] Comment:METER #: [id number] 05/14/2024 12:1 1 PM EST 05/14/2024 12:16 PM EST Generic External Data Provider LAB BLOOD ORDERAB LES Final Result [facility] [address] [place] [phone] * XR KUB and Upright 2 Views (05/14/2024 10:37 AM EST) Anatomical Region Laterality Modality Radiographic Nette ging 05/14/2024 10:3 7 AM EST Narrative 05/14/2024 10:38 AM EST ? [facility] ?[address] ?[place] [address] ?XRay Report ? Signed ? Patient: Valera,Trevor ?MR#: [id number] ?? 719 ? : 1960 ?Acct:[id number] ? Age/Sex: 63 / M ?ADM Date: 03/01/25 ? Loc: HO.ED ? Attending Dr: ? Ordering Physician: Denise Sumner DO ?? Date of Service: 05/14/24 ?? Procedure(s): XR KUB ?? Accession Number(s): [id number] ? cc: Denise Sumner DO; Gracy Cardona [employer] ? CLINICAL HISTORY: constipation ? 1 view abdomen ? Comparison: None ? Findings: ? No pneumoperitoneum or pneumatosis. ?? No abnormal calcifications. ?? No acute fractures. ? There is a relatively small stool burden. ? IMPRESSION: ? The bowel gas pattern is within normal limits. Relatively small stool ?? burden. ? This document has been electronically signed by: Alfredo Campos MD on ?? 05/14/2024 10:37:28 ? Dictated By: ?Alfredo Campos MD ? Signed By: ?<Electronically signed by Alfredo Campos MD in OV> ? 05/14/24 1038 ? DD/ 1037 ? TD/TT: 05/14/24 1037 ? Middleware Architect: ? Procedure Note Karrafita, Image - 05/14/[address] [address] XRay Report Signed Patient: Selwyn Valera R#: [id number] 719 : 9Acct:[id number] Age/Sex: 63 / MADM Date: 05/14/24 Loc: HO.ED Attending Dr: Ordering Physician: Denise Sumner DO Date of Service: 05/14/24 Procedure(s): XR KUB Accession Number(s): [id number] cc: Denise Sumner DO; [facility] CLINICAL HISTORY: constipation 1 view abdomen Comparison: None Findings: No pneumoperitoneum or pneumatosis. No abnormal calcifications. No acute fractures. There is a relatively small stool burden. IMPRESSION: The bowel gas pattern is within normal limits. Relatively small stool burden. This document has been electronically signed by: Alfredo Campos MD on 05/14/2024 10:37:28 Dictated By: Alfredo Campos MD Signed By: <Electronically signed by Alfredo Campos MD in OV> 05/14/24 1038 DD/ 1037 TD/TT: 05/14/24 1037 Middleware Architect: [facility] External Provider IMG XR PROCEDURES Edited Result - Final * OBSX1 (05/14/2024 8:30 AM EST) Pathologist [facility] OBS1 POSITIVE NEGATIVE [facility] 05/14/2024 8:30 AM EST 05/14/2024 8:35 AM EST Generic External Data Provider LAB BLOOD ORDERAB LES Final Result [facility] [address] [place] [phone] * (ABNORMAL) CBC auto differential (05/14/2024 8:30 AM EST) Only the most recent of2 resultswithin the time period is included. [facility] White Blood Count 14.3(H) 4.8 - 10.8 X10*3/uL [facility] Red Blood Count 5.07 4.60 - 5.80 X10*6/uL [facility] Hemoglobin 16.1 14.0 - 18.0 g/dl [facility] Hematocrit 46.6 42.0 - 52.0 % [facility] Mean Corpuscular Volume 91.9 80.0 - 98.0 fL [facility] Mean Corpuscular Hemoglobin 31.8 27.0 - 33.0 pg [facility] Mean Corpuscular HGB Conc 34.5 31.0 - 36.0 g/dl [facility] Red Cell Distribution Width 13.2 11.0 - 16.0 % [facility] Platelet Count 226 160 - 400 X10*3/uL [facility] Mean Platelet Volume 10.4 9.4 - 12.4 fL [facility] Neutrophils Percent Auto 73.3(H) 45 - 73 % [facility] Imm Gran Pct Auto 0.4 0.0 - 0.4 % [facility] Lymphocytes Percent Auto 19.5(L) 20 - 40 % [facility] Monocytes Percent Auto 5.7 2 - 11 % [facility] Eosinophils Percent Auto 0.8 0 - 4 % [facility] Basophils Percent Auto 0.3 0 - 2 % [facility] NRBC Pct Auto 0.0 0.0 - 0.2 /100WBC [facility] Neutrophils Absolute Auto 10.5(H) 2.0 - 8.3 x10*3/uL [facility] Imm Gran Abs Auto 0.06(H) 0.00 - 0.03 X10*3/uL [facility] Lymphocytes Absolute Auto 2.8 1.2 - 4.9 X10*3/uL [facility] Monocytes Absolute Auto 0.8 0.1 - 1.2 X10*3/uL [facility] Eosinophils Absolute Auto 0.1 0.0 - 0.4 X10*3/uL [facility] Basophils Absolute Auto 0.0 0.0 - 0.2 X10*3/uL [facility] NRBC Abs Auto 0.000 0.0 - 0.012 X10*3/uL [facility] 05/14/2024 8:30 AM EST 05/14/2024 8:35 AM EST us Generic External Data Provider LAB BLOOD ORDERAB LES Final Result Performing Organization Address City/State/[facility] Co de Phone Number [facility] [address] [place] [phone] * XR Chest 2 Views (05/06/2024 11:37 AM EST) Anatomical Region Laterality Modality Chest Radiographic Nette ging 05/06/2024 11:3 7 AM EST Narrative 05/06/2024 11:59 AM EST ? [facility] ?[address] ?[place] [address] ?XRay Report ? Signed ? Patient: Valera,Trevor ?MR#: [id number] ?? 719 ? : 1960 ?Acct:[id number] ? Age/Sex: 63 / M ?ADM Date: 02/21/25 ? Loc: HO.HHCL ? Attending Dr: Gracy MERCEDESP ? Ordering Physician: Gracy Cardona ?? Date of Service: 05/06/24 ?? Procedure(s): XR chest 2V ?? Accession Number(s): [id number] ? cc: Gracy Cardona ? EXAMINATION: ?? [...] DD/ 1137 ? TD/TT: 05/06/24 1149 ? Middleware Architect: ? Procedure Note Latrice, Image - 05/06/2024 [place] [address] XRay Report Signed Patient: Selwyn Valera LMR#: [id number] 719 : 9Acct:[id number] Age/Sex: 63 / MADM Date: 05/06/24 Loc: HO.HHCL Attending Dr: Gracy GAMEZ Ordering Physician: Gracy Cardona Date of Service: 05/06/24 Procedure(s): XR chest 2V Accession Number(s): [id number] cc: Gracy Cardona EXAMINATION: XR CHEST CLINICAL [...] 05/06/24 1156 DD/ 1137 TD/TT: 05/06/24 1149 Middleware Architect: [facility] IMG XR PROCEDURES Final Resul t * TSH W/Reflex to FT4 (05/06/2024 11:12 AM EST) TSH reflex Free T4 1.28 0.32 - 4.0 uIU/mL [facility] Blood Venous blood specimen / Unknown 05/06/2024 11:12 AM EST 05/06/2024 1:06 PM EST [facility] LAB BLOOD ORDERABLES Final Re sult [facility] [address] [place] [phone] * HIV-1/2 Antigen and Antibodies, Fourth Generation, with Reflexes (05/06/2024 11:12 AM EST) HIV AB/AG Nonreactive Nonreactive [facility] Comment:HIV-1 p24 Ag and/or HIV-1/HIV-2 Ab not detected.A test result that is nonreactive does not exclude thepossibility of exposure to or infection with HIV-1 and/orHIV-2. Nonreactive results in this assay for individualswith prior exposure to HIV-1 and/or HIV-2 may be due toantigen and antibody levels that are below the limit ofdetection of this assay.The [employer] HIV Ag/Ab Combo assay result andsupplemental assay results should be interpreted inconjunction with the patient's clinical presentation,history and other laboratory results. If the results areinconsistent with clinical evidence, additional testing issuggested to confirm the result. Blood Venous blood specimen / Unknown 05/06/2024 11:12 AM EST 05/06/2024 1:06 PM EST [facility] LAB BLOOD ORDERABLES Final Re sult Performing Organization Address [facility] Co de Phone Number [facility] [address] [place] [phone] * Sed Rate by Modified Gavinergren (05/06/2024 11:12 AM EST) Pathologist [facility] Erythrocyte Sedimentation Rate 8 0 - 15 MM/HR [facility] Comment:Patients with polycy themia and many hemoglobin abnormalitiesmay have depressed sed rates whereas patients with anemiamay have elevated sed rates. Blood Venous blood specimen / Unknown 05/06/2024 11:12 AM EST 05/06/2024 1:06 PM EST [facility] LAB BLOOD ORDERABLES Final Re sult Performing Organization Address [facility] Co de Phone Number [facility] [address] [place] [phone] * C-reactive Protein (05/06/2024 11:12 AM EST) Pathologist [facility] C Reactive Protein <0.10 < or = 0.50 mg/dL [facility] Blood Venous blood specimen / Unknown 05/06/2024 11:12 AM EST 05/06/2024 1:06 PM EST [facility] LAB BLOOD ORDERABLES Final Re sult Performing Organization Address [facility] Co de Phone Number [facility] [address] [place] [phone] * (ABNORMAL) Comprehensive Metabolic Panel (05/06/2024 11:12 AM EST) Sodium 141 135 - 145 mmol/L [facility] Potassium 3.6 3.3 - 5.1 mmol/L [facility] Chloride 107 96 - 108 mmol/L [facility] Carbon Dioxide 28 22 - 29 mmol/L [facility] Anion Gap 10(L) 12 - 20 [facility] Urea Nitrogen (BUN) 14 9 - 16 mg/dL [facility] Creatinine, Serum 1.23 0.5 - 1.4 mg/dL [facility] Estimated Glomerular Filt Rate 59 [facility] Comment:Chronic Kidney Disea se: Estimated GFR < 60 mL/min/1.20l8Yehzbb Kidney Disease: Estimated GFR < 15 mL/min/1.73m2 Glucose 85 60 - 115 mg/dL [facility] Calcium 9.6 8.4 - 10.2 mg/dL [facility] Bilirubin, Total 0.5 0.0 - 1.0 mg/dL [facility] Aspartate Amino Transferase 30 5 - 37 U/L [facility] Alanine Aminotransferase 33 0 - 40 U/L [facility] Total Protein 7.9 6.5 - 8.0 g/dL [facility] Albumin Level 4.0 3.5 - 5.0 g/dL [facility] Alkaline Phosphatase 94 39 - 117 U/L [facility] Blood Venous blood specimen / Unknown 05/06/2024 11:12 AM EST 05/06/2024 1:06 PM EST [facility] [employer] LAB BLOOD ORDERABLES Final Re sult [facility] [address] [place] [phone] * POCT Glucose (05/06/2024 10:24 AM EST) Glucose Blood, POC 142 60 - 200 mg/dL Comment:random [employer] Media Lot # [id number] Lot# Expiration Date [id number] Blood Capillary blood specimen / Unknown 05/06/2024 10:24 AM EST [facility] POINT OF CARE TEST ENTER/EDIT ORDERABLES Final Result * POCT HGB A1C (05/06/2024 10:23 AM EST) Hemoglobin A1C 5.6 4.0 - 6.0 % QC Media Lot # [id number] Lot# Expiration Date Blood 05/06/2024 10:2 3 AM EST [facility] POINT OF CARE TEST ENTER/EDIT ORDERABLES Final Result * (ABNORMAL) Lipid Panel, Standard (02/03/2024 1:24 PM EST) Triglycerides 133 <150 mg/dL [facility] Comment:Desirable Triglyceri de: less than 150 mg/dLBorderline High Triglyceride 150-199 mg/dLHigh Triglyceride: 200-499 mg/dLVery High Triglyceride: greater than or equal to 5OO mg/dL Cholesterol 144 <200 mg/dL [facility] Comment:Desirable Cholestero l: less than 200 mg/dLBorderline High Cholesterol: 200-239 mg/dLHigh Cholesterol: greater than 239 mg/dL LDL Cholesterol Calculated 82 <100 mg/dL [facility] Comment:Desirable LDL: less than 100 mg/dLNear Optimal/Above Optimal LDL: 110- 129 mg/dLBorderline High LDL: 130-159 mg/dLHigh LDL: 160-189 mg/dLVery High LDL: greater than or equal to 190 mg/dL HDL Cholesterol 36(L) >40 mg/dL [facility] Comment:Desirable HDL: great er than 40 mg/dL Note: This HDL assay may give artificially low results in patients with liver disease. Blood Venous blood specimen / Unknown 02/03/2024 1:24 PM EST 02/03/2024 4:29 PM EST [facility] LAB BLOOD ORDERABLES Final Re sult [facility] [address] [place] [phone] [phone] * Hepatitis C Viral RNA, Quantitative, Real-Time PC (04/22/2022 9:55 AM EST) HCV RNA, QN Real Time PCR <15 NOT DETECTED NOT DETECTED IU/mL [employer] [place] [facility] HCV RNA QN Real Time PCR <1.18 NOT DETECTED NOT DETECTED Log IU/mL [employer] [place] [facility] Comment: This test was performed using Real-Time Polymerase Chain Reaction. Reportable Range: 15 IU/mL to 100,000,000 IU/mL (1.18 Log IU/mL to 8.00 Log IU/mL). ?? The analytical performance characteristics of this assay have been determined by [employer]. The modifications have not been cleared or approved by the FDA. This assay has been validated pursuant to the CLIA regulations and is used for clinical purposes. ?? For more information on this test, go to: http://education.[employer]/faq/FLI70z0 (This link is being provided for informational/ educational purposes only.) 04/22/2022 9:55 AM EST 04/22/2022 9:55 AM EST Narrative [facility] - 04/23/2022 1:58 PM EST FASTING:YES FASTING: YES us Romel Bhandari MD LAB BLOOD ORDERABLES Final Resul t [facility] [address] [facility], [place] [phone] [employer] [place] [facility] [address], ([address]) [place] [phone] from Last 3 Months or Most Recently Relevant to Health Maintenance Insurance * Guarantor: Selwyn Valera Account Type Relation to Patient Date of Phone Billing Address Personal/Family Self 1960 [address] [place] [address] [facility] [place] [address] [place] [address] Care Teams Insole Buffer Relationship Specialty Start Date End Date ToledoGracy FNP [address] [place] [phone] PCP - General Family Medicine 06/04/22
--- OUTSIDE RECORDS SUMMARY | 2024-06-14 07:51 | XMS_ITS | Encounter Summary ---
Author Organization [employer] [facility] Address [address] [facility] 7[address] [place] [address] Care Team Providers Care Controls Technician Name Role Phone [facility] Primary Care Provider [phone] Reason for Visit * Reason Comments Med Change Request Encounter Details Date Type Department Care Team ([facility] Contact Info) Description 07/01/2022 Refill [facility] [address] [place], [place] [phone] [facility] [address] [place], [place] [phone] Anxiety Social History Tobacco Use Types Packs/Day [...] Upcoming Encounters Date Type Department Care Team ([facility] Contact Info) Description 08/03/2024 10:00 AM EDT Office Visit [facility] [address], [place] [phone] [place] [address] [place] [address] documented as of this encounter Visit Diagnoses Diagnosis Anxiety Anxiety state, unspecified documented in this encounter Care Teams Controls Technician Relationship Specialty Start Date End Date Dulce VERA Dubose [address] [place] [address] PCP - General Family Medicine 06/04/22 documented as of this encounter
--- NOTE | 2024-06-14 07:53 | CA_ITS ---
Transthoracic Echocardiogram Patient (Last, First, Middle): Selwyn Valera L Gender: Male Date of : 1960 Age: 63 Procedure Date: 06/14/2024 Procedure Type: Transthoracic Echocardiogram Location: OP Height: 180.34 cm Weight: 86.18 kg BSA: 2.06 m2 Heart Rate: bpm BP: 124 / 80 mmHg Picker And Sorter Load And Unload: Referring MD: Gracy GAMEZ Symptoms: CARDIOMYOPATHY I42.9 Study Quality: Adequate ECG Rhythm: Sinus Conclusions: - The left ventricular systolic function is normal. The calculated ejection fraction is 55% by biplane method. - There is moderate septal asymmetric hypertrophy. - There is mild calcification of the aortic valve. - No obvious valvular pathology seen on this study. Findings Left Ventricle Normal left ventricular cavity size. The left ventricular systolic function is normal. The calculated ejection fraction is 55% by biplane method. There is no evidence of regional wall motion abnormalities. Evidence suggests grade I (mild) diastolic dysfunction. There is moderate septal asymmetric hypertrophy. Right Ventricle Normal right ventricular cavity size and systolic function. Atria Both atria are normal in size. Aortic Valve There is a normal trileaflet aortic valve. There is mild calcification of the aortic valve. There is no aortic valve stenosis. There is no aortic valve regurgitation. Mitral Valve The mitral valve appears normal. There is no mitral valve regurgitation. There is no mitral valve stenosis. Pulmonic Valve The pulmonic valve is likely normal. Tricuspid Valve There is trace tricuspid valve regurgitation. There is no evidence of pulmonary hypertension. Great Vessels The sinuses of valsalva and asc aorta are normal in size. Venous The inferior vena cava is normal in size and collapses greater than 50% with inspiration. Pericardium/Pleural There is no evidence of pericardial effusion. Prior Study Comparison No prior study available for comparison. Recommendations, Care & Conclusions No obvious valvular pathology seen on this study. Measurements 2D Linear Measurements IVSd: 1.33 0.6-0.9/0.6-1.0 cm LVIDd: 4.92 3.9-5.3/4.2-5.9 cm LVIDd Index: 2.39 2.4-3.2/2.2-3.1 cm/m2 LVIDs: 3.03 2.0-3.6 cm LVPWd: 1.36 0.7-1.1 cm Ao Root: 3.40 2.1-3.5 cm LA Diam: 4.80 2.7-3.8/3.0-4.0 cm LAIDs Index: 2.33 1.5-2.3 cm/m2 LV Mass: 334.48 67-162/88-224 g LV Mass Index: 162.37 43-95/49-115 g/m2 LVOT Diam: 2.30 3.0+(-)1.3 cm 2D Systolic Function EF 4C: 52.70 >55% EF 2C: 57.30 >55% EF BiP: 55.10 >55% Mitral Valve MV VTI: 0.41 MV Pk Mikal: 1.05 MV Mn Mikal: 0.59 MV Pk Grad: 4.00 MV Mn Grad: 2.00 MV Pk E: 0.85 MV PK A: 0.81 MV Decel Time: 240.00 E/A: 1.10 E'Lateral: 6.96 E'Medial: 5.11 E/E' Med: 16.60 E/E' Lat: 12.20 PHT: 70.00 MVA PHT: 3.14 MVA Continuity: 2.36 Decel [place]: 3.54 Aortic Valve AoV Pk Mikal: 1.73 AoV Mn Mikal: 1.02 AoV VTI: 0.40 AoV Pk Grad: 12.00 Aov Mn Grad: 5.00 JV Cont.VTI: 2.38 LVOT LVOT Pk Mikal: 0.90 LVOT Mn Mikal: 0.59 LVOT VTI: 0.23 LVOT Pk Grad: 3.00 LVOT Mn Grad: 2.00 LVOT Diam: 2.30 LVOT Area: 4.15 Diastolic Function MV Pk E: 0.85 MV Pk A: 0.81 E/A: 1.10 E'Medial: 5.11 E/E' Med: 16.60 E' Laterial: 6.96 E/E' Lat: 12.20 Right Ventricle TAPSE (mm): 28.00 Tricuspid Valve TR Pk Mikal: 1.58 TR Pk Grad: 10.00 RA Press: 3.00 RVSP: 13.00 Great Vessels Aorta Ao Root-2D: 3.40 2.0-3.7 cm Ao Asc: 3.70 2.1-3.4 cm Pulmonary Valve PV Pk Mikal: 1.19 Peak PV Grad: 6.00 Updated in Other Vendor System with Status of Final Abelino Carbajal MD electronically signed on 06/15/2024 4:11:45 PM with status of Final
== END ==
LOC: HO.CARD 07:48
PROVIDERS: PCP Registered Nurse; Visit Provider Registered Nurse
DX: I42.9 Cardiomyopathy, unspecified (principal)
CPT/HCPCS: 93306

== ENCOUNTER → 2024-06-14 07:53 | Outpatient (BNV) | payer OTHER, SELFPAY | PROVIDERS: PCP Registered Nurse; Visit Provider Internal Medicine | DX: I42.2 Other hypertrophic cardiomyopathy (principal); I51.89 Other ill-defined heart diseases; I35.8 Other nonrheumatic aortic valve disorders | CPT/HCPCS: 93306 ==

== ENCOUNTER 2024-11-24 13:53 | Outpatient (AMB) | payer OTHER, SELFPAY ==
--- NOTE | 2024-11-24 13:56 | MHC.OFFVIS ---
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/hypertrophic nonobstructive cm Intake Note: New patient dx HOCM with ekg c/o fatigue Speeder Machine Operator Required: No Supervisor Real Estate Office: Supervisor Real Estate Office Present Accompanied by: Daughter Allergies No Known Allergies Allergy (Verified 05/14/24 06:51) Medication List - Last Reviewed 11/24/24 by OSCAR Ching aspirin 1 tab PO QAM blood sugar diagnostic (FreeStyle Test strips) Check once a day in the morning bupropion HCl SR 200 mg PO QAM chlorthalidone 25 mg PO QAM clonidine HCl 0.3 mg PO BID 90 days docusate sodium (Colace) 100 mg PO BID PRN fluoxetine 60 mg (3 x 20 mg) PO DAILY lancets (FreeStyle Lancets) Check once a day in the morning metformin ER 500 mg PO metoprolol succinate ER mg PO DAILY nifedipine ER mg PO olmesartan 5 mg PO DAILY pioglitazone 15 mg PO DAILY 90 days sennosides (senna) 8.6 mg PO BEDTIME PRN simvastatin 40 mg PO QPM HPI Comments Details: Selwyn was ask for cardiology consultation due to echo findings. 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 About a year ago the daughter to charge office health as he is doing poorly. He had gained a lot of weight and was not exercising and was not able to do much stuff and was feeling very fatigued and tired. His blood pressure is not well controlled as per the daughter. Since then the daughter has modified his diet and has been also coaxing him to exercise more. He has become more alert he has not had any significant symptoms at this point time. His blood pressure is very well controlled at this point time. He does have memory issues question chronic traumatic encephalopathy. Although this is not been insufficiency diagnose. He denies any cardiac symptoms with exercise. Denies any exertional chest pain or shortness of breath. Denies any orthopnea, PND, leg edema. No prolonged palpitation irregular heartbeat. No lightheadedness, syncope. Echocardiogram was requested which showed normal LV ejection fraction with moderate asymmetric septal hypertrophy without any obstructive physiology with mild calcification of the aortic valve with normal cardiac valvular Dopplers. He is now taking all his medications. 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 Son No problems noted. Daughter No problems noted. Daughter No problems noted. Daughter No problems noted. Daughter No problems noted. Sister No problems noted. Sister No problems noted. Sister No problems noted. Sister No problems noted. Sister No problems noted. Sister No problems noted. Sister No problems noted. Social History Patient Tobacco Use Status: Tobacco use Unknown Review of Systems Const Denies chills, Denies daytime sleepiness, Denies fatigue, Denies fever(s), Denies frequent falls, Denies poor appetite, Denies snoring, Denies stops breathing during sleep, Denies weakness, Denies weight gain and Denies weight loss Eyes Denies loss of vision ENT Denies dizziness and Denies hearing loss Card Denies chest pain, Denies claudication, Denies leg edema, Denies lightheadedness, Denies palpitations, Denies dyspnea, Denies dyspnea on exertion and Denies orthopnea Resp Denies cough, Denies excessive phlegm production, Denies dyspnea, Denies dyspnea on exertion, Denies snoring and Denies wheezing GI Denies abdominal pain, Denies hematochezia, Denies change in bowel habits, Denies nausea and Denies vomiting Denies dysuria and Denies urinary frequency Musc Denies arthralgias, Denies muscle weakness and Denies numbness Skin/Breast Denies nail changes and Denies rash Neuro Denies Abnormal speech present, Denies dizziness, Denies frequent falls, Denies loss of vision, Denies memory loss, Denies numbness and Denies weakness Psych Denies depression and Denies memory loss Endo Denies fatigue and Denies palpitations Cuco/Lymph Reports easy bruising and Reports other (anemia) Aller/Immun Denies wheezing Physical Exam Vital Signs: Last Vital Signs Pulse 60 11/24/24 13:59 BP 114/70 11/24/24 13:59 BMI result Body Mass Index 35.7 Const General: cooperative, comfortable, no acute distress, well developed, alert and awake Nutritional Appearance: well nourished and overweight Orientation/consciousness: patient oriented x3 HEENT Head: Yes normocephalic and Yes atraumatic Neck Neck: Yes trachea midline, Yes supple and Yes no JVD Resp Effort & Inspection: normal respiratory effort Auscultation: clear to auscultation bilaterally Cardio Jugular venous distension: no JVD Palpation: normal PMI Rate: regular rate Rhythm: regular rhythm Heart sounds: S1 normal heart sound present, S2 normal heart sound present, no click, no gallops and Murmur heart sound present systolic early Skin General skin exam: no rashes or lesions noted Neuro General: patient oriented x3 and no focal motor deficits Speech: No Abnormal speech present Extrem General: Yes no clubbing, cyanosis or edema Psych Appearance: grossly normal Office Procedures EKG Details: EKG shows normal sinus rhythm anteroseptal infarct pattern 61669-[id number], Complete Assessment & Plan Assessment & Plan (1) Asymmetric septal hypertrophy: Code(s): I51.7 - Cardiomegaly Category: Medical Plan: Asymmetric septal hypertrophy in this elderly gentleman with moderate thickness with no obstructive physiology. He has no symptoms related to it. Could be related to longstanding hypertension which is untreated. Currently blood pressure is well optimized. He has no signs or symptoms of heart failure. Possibility exists of hypertrophic cardiomyopathy. Although there was no family history of sudden cardiac that and given his age likelihood of sudden cardiac that has low. I do not think he requires any further testing. I would continue to aggressively treat his blood pressure as it is currently well optimized on current therapy. Importance of good blood pressure control was discussed. Low-salt diet was discussed. I encouraged him to restart his high level of activity that he was in the past gradually increasing his intensity. Continue participate in weight loss program. Signs and symptoms of heart failure were discussed. I would agree with low-dose aspirin therapy given his calcific aortic valve disease. Continue statin therapy with target goal LDL less than 100 mg/dL. Will follow up in the clinic if need be. Thank you for allowing me to partake in his care Coding Level of Care Code New Pt Level 4 (61577) Diagnoses Asymmetric septal hypertrophy I51.7 CPT Codes EKG - CPT: 26998-[id number], Complete ([id number])
[2024-11-24 13:59] VITALS: BP 114/70; PULSE 60; BMI 35.7
--- OUTSIDE RECORDS SUMMARY | 2024-11-24 17:47 | XMS_ITS | Encounter Summary ---
Demographics Address [address] [facility] [address] [place] [address] Home Phone Preferred Language en Marital Status Unknown Episcopal Affiliation Unknown Race Unknown Ethnic Group Unknown Author Organization [facility] Address [address] [facility] [address] [place] [address] Phone Care Team Providers Care Acid Tender Name Role Phone Romel Bhandari MD Primary Care Provider [phone] Reason for Visit * Reason Comments Med Refill Encounter Details Date Type Department Care Team (Late Contact Info) Description 06/17/2024 Refill [facility] [address] [place] [address] Mikal Tsai MD [address] [address] Social History Tobacco Use Types Packs/Day [...] Department Care Team (Late Contact Info) Description 01/23/2025 2:15 PM EST Office Visit [facility] [address] [place] [address] Mikal Tsai MD [address] [facility] [address] [place] [address] documented as of this encounter Visit Diagnoses Not on filedocumented in this encounter Care Teams Acid Tender Relationship Specialty Start Date End Date Romel Bhandari MD [address] [facility] [place] [address] PCP - General Emergency Medicine 04/28/22 documented as of this encounter
--- OUTSIDE RECORDS SUMMARY | 2024-11-24 17:47 | XMS_ITS | Encounter Summary ---
Demographics Address [address] [facility] [address] [place] [address] Home Phone Preferred Language en Marital Status Unknown Uatsdin Affiliation Unknown Race Unknown Ethnic Group Unknown Author Organization [facility] Address [address] [facility] [address] [place] [address] Phone Care Team Providers Care Software Engineering Supervisor Name Role Phone Romel Bhandari MD Primary Care Provider [phone] Reason for Visit * Reason Comments Med Refill Encounter Details Date Type Department Care Team (Late Contact Info) Description 03/14/2024 Refill [facility] [address] [place] [address] Mikal Tsai MD [address] [address] Social History Tobacco Use Types [...] Visit [facility] [address] [place] [address] Mikal Tsai MD [address] [facility] [address] [place] [address] documented as of this encounter Visit Diagnoses Not on filedocumented in this encounter Care Teams Software Engineering Supervisor Relationship Specialty Start Date End Date Romel Bhandari MD [address] [facility] [place] [address] PCP - General Emergency Medicine 04/28/22 documented as of this encounter
--- OUTSIDE RECORDS SUMMARY | 2024-11-24 17:47 | XMS_ITS | Encounter Summary ---
Author Organization [facility] Address [address] [place] [address] 7 [place] [address] Care Team Providers Care Rate Engineer Name Role Phone [facility] Primary Care Provider [phone] Encounter Details Date Type Department Care Team (Late Contact Info) Description 11/06/2022 Orders Only [facility] [address] [place] [phone] Chantel Brito [place] Social History Tobacco Use [...] Department Care Team (Late Contact Info) Description 12/12/2024 1:00 PM EDT Office Visit [facility] [address] [place] [phone] [facility] [address] [place] [address] documented as of this encounter Goals Goal Patient Goal Type Associated Problems Recent Progress Patient-Stated? Author Check and record your blood pressure once per day Blood Pressure No Richard, Jose Elias, PharmD Take your medication every day Lifestyle No Jose Elias Ramos PharmD documented as of this encounter Visit Diagnoses Not on filedocumented in this encounter Additional Health Concerns Assessment Noted Time PHQ-9 Depression Total Score: 0 08/13/19 23 2:07 PM EDT documented as of this encounter Care Teams Rate Engineer Relationship Specialty Start Date End Date Gracy Cardona FNP [address] [place] [address] PCP - General Family Medicine 06/04/22 documented as of this encounter
--- OUTSIDE RECORDS SUMMARY | 2024-11-24 17:47 | XMS_ITS | Encounter Summary ---
Author Organization [employer] Address [address] [facility] [address] [place] [address] Care Team Providers Care Vegetable Farm Manager Name Role Phone [facility] Primary Care Provider [phone] Encounter Details Date Type Department Care Team ([facility] Contact Info) Description 09/15/2024 Telephone [facility] [address] [place], [place] [phone] [facility], [facility] [address] [place] [address] Social History Tobacco Use Types Packs/Day Years [...] Care Team (Late st Contact Info) Description 12/12/2024 1:00 PM EDT Office Visit [facility] [address] [place] [address] Gracy Cardona FNP [address] [place] [address] documented as of this encounter Goals Goal [...] documented as of this encounter Care Teams Vegetable Farm Manager Relationship Specialty Start Date End Date Gracy Cardona FNP [address] [place] [address] PCP - General Family Medicine 06/04/22 documented as of this encounter
--- OUTSIDE RECORDS SUMMARY | 2024-11-24 17:47 | XMS_ITS | Clinical Summary ---
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 08/08/19 23 Active Blood Glucose Monitoring Suppl (WebrazziStyle Lite) w/Device kit 1 kit 2 times daily. TEST BLOOD SUGAR TWICE DAILY 1 kit 02/17/20 23 Active ammonium lactate (Lac-Hydrin) 12 % lotionIndications: Type 2 diabetes mellitus with stage 3a chronic kidney disease, without long-term current use of insulin (CMS/[facility]) Apply topically if needed for dry skin. 396 g 3 02/03/20 24 025 Active glucose 4 g chewable tabletIndications: Type 2 diabetes mellitus with stage 3a chronic kidney disease, without long-term current use of insulin (CMS/[facility]) Chew 4 tablets (16 g) if needed for low blood sugar. 50 tablet 12 02/03/20 24 025 Active atorvastatin (Lipitor) 40 MG tabletIndications: Mixed hyperlipidemia TAKE 1 TABLET BY MOUTH EVERY MORNING 90 tablet 03/14/20 24 Active olmesartan (BENIcar) 5 MG tabletIndications: Primary hypertension TAKE 1 TABLET BY MOUTH EVERY MORNING 90 tablet 1 03/30/19 25 Active metoprolol succinate XL (Toprol-XL) 100 MG 24 hr tabletIndications: Primary hypertension TAKE 1 TABLET BY MOUTH EVERY MORNING 90 tablet 1 03/30/19 25 Active chlorthalidone (Hygroton) 25 MG tabletIndications: Primary hypertension TAKE 1/2 TABLET BY MOUTH EVERY MORNING 45 tablet 1 03/30/19 25 Active metFORMIN XR (Glucophage-XR) 500 MG 24 hr tabletIndications: Type 2 diabetes mellitus without complication, without long-term current use of insulin ([facility]) TAKE 1 TABLET BY MOUTH TWICE DAILY IN THE MORNING AND IN THE EVENING WITH FOOD 180 tablet 05/12/19 25 Active glucose blood (FREESTYLE LITE) test stripIndications:T ype 2 diabetes mellitus without complications ([facility]) TEST BLOOD SUGAR TWICE DAILY 50 strip 11 06/18/19 25 Active TRUEplus Lancets 33G miscIndications:Ty pe 2 diabetes mellitus without complications ([facility]) TEST BLOOD SUGAR TWICE DAILY DIRECTED 100 each 11 06/18/19 25 Active aspirin 81 MG chewable tabletIndications: Type 2 diabetes mellitus with stage 3a chronic kidney disease, without long-term current use of insulin ([facility]) Chew 1 tablet (81 mg) Once per day. 90 tablet 3 09/01/19 25 026 Active Memantine HCl ER 7 MG capsule sustained-release 24 hrIndications:Mode rate dementia without behavioral disturbance, psychotic disturbance, mood disturbance, or anxiety, unspecified dementia type ([facility]) TAKE 1 CAPSULE BY MOUTH EVERY MORNING 90 capsule 09/15/19 25 Active cyanocobalamin (Vitamin B-12) 1000 MCG tabletIndications: Cognitive decline TAKE 1 TABLET BY MOUTH EVERY MORNING 90 tablet 09/15/19 25 Active NIFEdipine XL (Procardia XL) 60 MG 24 hr tabletIndications: Primary hypertension Take 2 tablets (120 mg) by mouth Once per day. Do not crush, chew, or split. 180 tablet 3 09/01/19 25 025 Discontin ued(Side effects) Active Problems Problem Noted Date Diagnosed Date Cardiomyopathy 10/26/2024 Dizziness 09/08/2022 Moderate dementia 07/23/2022 Overview (07/23/2022): Memory loss worsening over the past several months. Gets confused about where he is. Gets lost walking home from [place] On memantine 7mg ER initiated from previous provider Brain MRI pending Assessment & Plan (09/25/2022 12:00 PM EDT): Follow up pending brain MRI results-will consider neurology referral Continue memantine 7mg ER Assessment & Plan (07/23/2022 6:57 PM EDT): Daughter will call to reschedule brain MRI Continue memantine 7mg. Unclear how rx was started however given patient considerable cognitive impairment I feel it is reasonable to continue at this time. 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 Confirmed hx of treatment with DPH Assessment & Plan (07/23/2022 6:50 PM EDT): Likely prior infection. Will task RN's to confirm with DPH CKD (chronic kidney disease) stage 3, GFR 30-59 ml/min 07/23/2022 Overview (07/23/2022): Followed by [facility] Baseline Cr 1.85; eGFR 40 HTN (hypertension) 04/17/2022 Assessment & Plan (09/25/2022 11:58 AM EDT): BP slightly elevated in office however WNL at recent RN BP check Continue to monitor readings at home. Contact HC if consistently >140/90 Will reach out to pharmacy to see if MTM appointment can be moved sooner Assessment & Plan (08/12/2022 2:34 PM EDT): STOP triamterene-hydrochlorothiazide START olmesartan 5mg daily START chlorthalidone 12.5mg daily Reviewed administration, risks, side effects RN BP check 2 weeks with repeat [...] Component Value Date HGBA1C 6.4 (H) 04/22/2022 Continue current regimen Complete labs Will plan to discuss aspirin for primary prevention at follow up Assessment & Plan (07/23/2022 6:38 PM EDT): Lab Results Component Value Date HGBA1C 6.4 (H) 04/22/2022 Continue current regimen Plan to discuss SGLT2i for renal protection at follow up Traumatic brain injury 04/17/2022 Overview (07/23/2022): multiple TBI s/t boxing career. Severe obstructive sleep apnea 04/17/2022 Overview (07/23/2022): Referral to sleep medicine placed 05/2021 Hx of severe obstructive sleep apnea. No longer has CPAP machine Assessment & Plan (07/23/2022 7:01 PM EDT): Will order home sleep study to expedite care Daughter provided with contact info for sleep medicine to inquire about initial appointment Resolved Problems Problem Noted Date Diagnosed Date Resolved Date Forgetfulness 04/17/2022 07/23/2022 Encounters Date Type Department Care Team Description 10/26/2024 10:15 AM EDT Office Visit [facility] [address] [place], [place] [phone] HammettGracy FNP Unintentional weight loss (Primary Dx); Type 2 diabetes mellitus with stage 3a chronic kidney disease, without long-term current use of insulin ([facility]); Moderate dementia without behavioral disturbance, psychotic disturbance, mood disturbance, or anxiety, unspecified dementia type (CMS/HCC); Cardiomyopathy, unspecified type ([facility]/HCC); Primary hypertension 10/26/2024 Travel 10/25/2024 Telephone [facility] [address] [place] [address] HammettGracy [facility] Chart Prep 10/17/2024 Patient Outreach [facility] [address] [place] [address] HammettGracy [facility] Pre-visit Planning (SDOH screening completed on 05/06/2024) 09/15/2024 Telephone [facility] [address] [place], [place] [phone] HammettGracy peña [facility] 09/14/2024 Refill [facility] [address] [place] [address] Kym Walker MD Cognitive decline 09/14/2024 Refill [facility] [address] [place] [address] HammettGracy [facility] Moderate dementia without behavioral disturbance, psychotic disturbance, mood disturbance, or anxiety, unspecified dementia type ([facility]/HCC); Cognitive decline 09/08/2024 Telephone [facility] [address] [place] [address] HammettGracy [facility] sept recall 08/25/2024 Refill [facility] [address] [place] [address] HammettGracy [facility] Primary hypertension; Type 2 diabetes mellitus with stage 3a chronic kidney disease, without long-term current use of insulin ([facility]) from Last 3 Months Immunizations Immunization Administration Dates Next Due Influenza injectable quadriv [...] Date Recorded Patient Health Questionnaire-9 Score 0 10/26/2024 Patient Health Questionnaire-9 Score 0 10/26/2024 Last PHQ-9: Questionnaire Data Not on file 0 10/26/2024 Housing Stability Answer Date Recorded What is [...] Date Recorded Patient Health Questionnaire-2 Score 0 10/26/2024 Internet Access Answer Date Recorded Internet Access [...] Sign Reading Time Taken Comments Blood Pressure 120/80 10/26/2024 10:57 AM EDT Pulse 60 10/26/2024 10:57 AM EDT Temperature 36.2 C (97.2 F) 10/26/2024 10:57 AM EDT Respiratory Rate 20 10/26/2024 10:57 AM EDT Oxygen Saturation 100% 05/26/2024 11:37 AM EDT Inhaled Oxygen Concentration - - Weight 116 kg (255 lb 9.6 oz) 10/26/2024 10:57 A M EDT Height 180.3 cm (5' 11 ) 10/26/2024 10:57 AM EDT Body Mass Index 35.65 10/26/2024 10:57 AM EDT Plan of Treatment Upcoming Encounters Date Type Department Care Team (Late st Contact Info) Description 12/12/2024 1:00 PM EDT Office Visit [facility] [address] [place] [address] Hammett, Gracy, [facility] [address] [place] [address] Health Maintenance Due Date Last Done Comments CT Colonography 1960 Colonoscopy 1960 Colorectal Cancer Screening 1960 FIT DNA/Cologuard 1960 FIT 1960 FOBT 1960 Sigmoidoscopy 1960 Zoster Vaccines (1 of 2) 2008 RSV Patients and Patients Aged 60 years or older (1 - Risk 60-74 years 1-dose series) 2018 COVID-19 Vaccine ( season) 2024 11/14/2021, 07/11/2020, 06/19/2020 Influenza Vaccine (#1) 2024 4, 12/21/2018, 01/01/2018 Diabetes: Foot Exam 02/02/2025 02/03/2024, Lipid Panel 02/02/2025 02/03/2024, 09/23/2022 Diabetes: Hemoglobin A1C 04/28/2025 025, 05/06/2024, 02/03/2024, Additional history exists Alcohol/Substance Use Screening 05/06/2025 05/06/2024 SDOH Screening 05/06/2025 05/06/2024 Eye Exam 07/14/2025 07/15/2023 Depression Screening 10/26/2025 10/26/2024, 10/27/19 25 Tobacco Screening 10/26/2025 10/26/2024 DTaP/Tdap/Td Vaccines (2 - Td or Tdap) 08/12/2032 08/12/2022 Hepatitis C Screening Completed 04/22/2022 Pneumococcal Vaccine: 50+ Years Completed 08/12/2022 HIB Vaccines Aged Out No longer eligi [...] patient's age to complete this topic Meningococcal B Vaccine Aged Out No l onger eligible based on patient's age to complete [...] Procedure Name Priority Date/Time Associated Diagnosis Comments POCT GLUCOSE Routine 10/26/2024 11:40 AM EDT Type 2 diabetes mellitus with stage 3a chronic kidney disease, without long-term current use of insulin (CMS/HCC) POCT GLYCATED HEMOGLOBIN, TOTAL Routine 10/26/2024 11:39 AM EDT Type 2 diabetes mellitus with stage 3a [...] Recently Relevant to Health Maintenance Results * POCT Glucose (10/26/2024 11:40 AM EDT) Glucose Blood, POC 165 60 - 200 mg/dL Blood Capillary blood specimen / Unknown 10/26/2024 11:40 AM EDT [facility] POINT OF CARE TEST ENTER/EDIT ORDERABLES Final Result * POCT HGB A1C (10/26/2024 11:39 AM EDT) Hemoglobin A1C 5.3 4.0 - 5.7 % Blood 10/26/2024 11:3 9 AM EDT [facility] POINT OF CARE TEST ENTER/EDIT ORDERABLES Final Result * (ABNORMAL) Lipid Panel, Standard (02/03/2024 1:24 PM EST) Triglycerides 133 <150 mg/dL [facility] Comment:Desirable Triglyceri de: less than 150 mg/dLBorderline High Triglyceride 150-199 mg/dLHigh Triglyceride: 200-499 mg/dLVery High Triglyceride: greater than or equal to 5OO mg/dL Cholesterol 144 <200 mg/dL [facility] Comment:Desirable Cholestero l: less than 200 mg/dLBorderline High Cholesterol: 200-239 mg/dLHigh Cholesterol: greater than 239 mg/dL LDL Cholesterol Calculated 82 <100 mg/dL [facility] Comment:Desirable LDL: less than 100 mg/dLNear Optimal/Above Optimal LDL: 110- 129 mg/dLBorderline High LDL: 130-159 mg/dLHigh LDL: 160-189 mg/dLVery High LDL: greater than or equal to 190 mg/dL HDL Cholesterol 36(L) >40 mg/dL [facility] Comment:Desirable HDL: great er than 40 mg/dL Note: This HDL assay may give artificially low results in patients with liver disease. Blood Venous blood specimen / Unknown 02/03/2024 1:24 PM EST 02/03/2024 4:29 PM EST [facility] LAB BLOOD ORDERABLES Final Re sult [facility] [address] [place] [address] [phone] * Hepatitis C Viral RNA, Quantitative, Real-Time PC (04/22/2022 9:55 AM EST) [facility] HCV RNA, QN Real Time PCR <15 NOT DETECTED NOT DETECTED IU/mL [facility] [place] [facility] HCV RNA QN Real Time PCR <1.18 NOT DETECTED NOT DETECTED Log IU/mL [facility] [place] [facility] Comment: This test was performed using Real-Time Polymerase Chain Reaction. Reportable Range: 15 IU/mL to 100,000,000 IU/mL (1.18 Log IU/mL to 8.00 Log IU/mL). The analytical performance characteristics of this assay have been determined by [facility] [facility]. The modifications have not been cleared or approved by the FDA. This assay has been validated pursuant to the CLIA regulations and is used for clinical purposes. For more information on this test, go to: http://education.Hey, Neighbor!/faq/DJE47w2 (This link is being provided for informational/ educational purposes only.) 04/22/2022 9:55 AM EST 04/22/2022 9:55 AM EST Narrative [facility] - 04/23/2022 1:58 PM EST FASTING:YES FASTING: YES Romel Bhandari MD LAB BLOOD ORDERABLES Final Resul t Performing Organization Address City/[facility]/ZIP Co de Phone Number [facility] [address], [place] [address] [facility] [place] [facility] [address] [facility], ([address]) [place] [address] from Last 3 Months or Most Recently Relevant to Health Maintenance Insurance [facility] STANDARD [facility] OPTIONS (HMO D-SNP) Care Teams Rice Dryer Mechanic Relationship Specialty Start Date End Date Gracy Cardona FNP [address] [place] [id number] PCP - General Family Medicine 06/04/22
--- OUTSIDE RECORDS SUMMARY | 2024-11-24 17:47 | XMS_ITS | Encounter Summary ---
Author Organization [employer] Address [address] [place] [address] [address] [place] [address] Care Team Providers Care Fish Agent Name Role Phone [facility] Primary Care Provider [phone] Reason for Visit * Reason Comments Med Change Request Encounter Details Date Type Department Care Team ([facility] Contact Info) Description 07/01/2022 Refill [facility] [address] [place], [place] [phone] [facility] [address] [place], [place] [phone] Anxiety Social History Tobacco Use Types Packs/Day [...] Upcoming Encounters Date Type Department Care Team ([facility] Contact Info) Description 12/12/2024 1:00 PM EDT Office Visit [facility] [address] [place], [place] [phone] [facility] [place] [facility] [address] [place] [address] documented as of this encounter Visit Diagnoses Diagnosis Anxiety Anxiety state, unspecified documented in this encounter Care Teams Fish Agent Relationship Specialty Start Date End Date Gracy Cardona FNP [address] [place] [address] PCP - General Family Medicine 06/04/22 documented as of this encounter
--- OUTSIDE RECORDS SUMMARY | 2024-11-24 17:47 | XMS_ITS | Clinical Summary ---
Demographics Address [address] [place] [address] Home Phone Preferred Language en Marital Status Unknown Worship Affiliation Unknown Race Unknown Ethnic Group Unknown Author Organization [facility] Address [address] [place] [address] Phone Care Team Providers Care Cinetechnician Name Role Phone Romel Bhandari MD Primary Care Provider [phone] Allergies No known active allergies Medications triamterene-hy droCHLOROthiaz aksey (MAXZIDE-25) 37.5-25 MG per tablet TAKE 1 [...] kidney disease stage 3 07/23/2022 Overview (08/07/2022): Followed by [place] [facility] Baseline Cr 1.85; eGFR 40 Dementia, moderate 07/23/2022 Overview (08/07/2022): Memory loss worsening over the past several months. Gets confused about where he is. Gets lost walking home from [employer] On memantine 7mg ER initiated from previous provider Brain MRI pending Last Assessment & Plan: Daughter will call to reschedule brain MRI Continue memantine 7mg. Unclear how rx was started however given patient considerable cognitive impairment I feel it is reasonable to continue at this time. 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 Pt reports thinking he was treated a long time ago Last Assessment & Plan: Likely prior infection. Will task RN's to confirm with DPH Type 2 diabetes mellitus without complication Traumatic brain injury 04/17/2022 Obstructive sleep apnea syndrome 04/17/2022 Forgetful 04/17/2022 Hypertensive disorder 04/17/2022 Encounters Date Type Department Care Team Description 09/14/2024 Refill [facility] [address] [place] [address] Mikal Tsai MD from Last 3 Months Immunizations Immunization Administration Dates Next Due Influenza, Quadrivalent, Preservative Free 12/21 Influenza, Quadrivalent, With Preservative 01/01 Pfizer SARS-COV-2 11/14/2021,07/11/2020,06/20/19 Family History Relation Status Comments Father Mother [...] Mass Index - - Plan of Treatment Upcoming Encounters Date Type Department Care Team (Late st Contact Info) Description 01/23/2025 2:15 PM EST Office Visit [facility] [address] [place] [address] Mikal Tsai MD [address] [place] [phone] Health Maintenance Due Date Last Done Comments Colorectal Cancer Screening: Annual FOBT 06/25/2007 Colorectal Cancer Screening: Colonoscopy 06/25/2007 Colorectal Cancer Screening: Sigmoidoscopy 06/25/2007 Diabetes: Ophthalmology Exam 04/15/2020 Diabetes: Pedal Pulse Checked 04/15/2020 Diabetes: Sensory Foot Exam 04/15/2020 Diabetes: Visual Foot Exam 04/15/2020 Diabetes: Hemoglobin A1C 08/03/2024 025, 02/03/2024, 04/22/2022, Additional history exists Influenza Vaccine (#1) 2024 4, 12/21/2018, 01/01/2018 Pneumococcal Vaccine: 50+ Years Completed 08/12/2022 Pneumococcal Vaccine: Peds (0 to 5 Years) and At-Risk Patients (6 to 49 Years) Discontinued 08/12/2022 Hepatitis B Vaccine Aged Out No longe [...] mg/dl PVNMA 08/25/2019 us [facility]version LAB [id number] LICITED RESULTS Final Result PVNMA from Last 3 Months or Most Recently Relevant to Health Maintenance Insurance * Guarantor: Selwyn Valera Account Type Relation to Patient Date of Phone Billing Address Personal/Family Self 1960 [address] [place] [address] Medicare Medicaid [place] [facility] Care Teams Cinetechnician Relationship Specialty Start Date End Date Romel Bhandari MD [address] [place] [phone] PCP - General Emergency Medicine 04/28/22
== END 2024-11-24 14:25 | disposition home or self-care (01) ==
LOC: HO.HCS 13:54
PROVIDERS: PCP Registered Nurse; Visit Provider Internal Medicine Cardiovascular Disease
DX: I51.7 Cardiomegaly (principal)
CPT/HCPCS: 93010; 99204

== ENCOUNTER → 2024-11-24 13:53 | Outpatient (BNVA) | payer OTHER, SELFPAY | PROVIDERS: PCP Registered Nurse; Visit Provider Internal Medicine Cardiovascular Disease | DX: I10 Essential (primary) hypertension (principal); I51.7 Cardiomegaly | CPT/HCPCS: 93005; 99202 ==